=== PATIENT | female | born 1985 | race Caucasian/White ===

== ENCOUNTER → 2016-07-11 | Outpatient (CLI) | payer MEDICAID ==
[2016-07-11 14:56] LABS: ABSOLUTE BASOPHILS # (AUTO) 0.1 10^3/uL (0.0-0.2); ABSOLUTE EOSINOPHILS # (AUTO) 0.2 10^3/uL (0.0-0.6); ABSOLUTE LYMPHOCYTES (AUTO) 3.2 10^3/uL (0.5-4.7); ABSOLUTE MONOCYTES (AUTO) 0.7 10^3/uL (0.1-1.4); ABSOLUTE NEUT (AUTO) 5.7 10^3/uL (1.7-8.2); BASOPHILS % (AUTO) 1.2 % (0-2); EOSINOPHILS % (AUTO) 1.7 % (0-6); HEMOGLOBIN 13.6 g/dL (12.0-15.5); HGB HCT DIFFERENCE -0.2; LYMPHOCYTES % (AUTO) 32.2 % (13-45); MEAN CORPUSCULAR HEMOGLOBIN 27.3 pg (27.0-33.4); MEAN CORPUSCULAR HGB CONC 33.2 g/dL (32.0-36.0); MEAN CORPUSCULAR VOLUME 82 fl (80-97); MONOCYTES % (AUTO) 7.2 % (3-13); RED BLOOD COUNT 4.99 10^6/uL (3.72-5.28); RED CELL DISTRIBUTION WIDTH 13.1 % (11.5-14.0); SEGMENTED NEUTROPHILS % (AUTO) 57.7 % (42-78); WHITE BLOOD COUNT 9.9 10^3/uL (4.0-10.5)
[2016-07-11 15:19] LABS: ALANINE AMINOTRANSFERASE 29 U/L (9-52); ALBUMIN 4.4 g/dL (3.5-5.0); ALKALINE PHOSPHATASE 60 U/L (38-126); ANION GAP 15 (5-19); ASPARTATE AMINO TRANSFERASE 23 U/L (14-36); BILIRUBIN,DIRECT 0.3 mg/dL (0.0-0.4); BILIRUBIN,TOTAL 0.6 mg/dL (0.2-1.3); BLOOD UREA NITROGEN 16 mg/dL (7-20); CALCIUM 10.1 mg/dL (8.4-10.2); CARBON DIOXIDE 29 mmol/L (22-30); CHLORIDE 100 mmol/L (98-107); CHOLESTEROL 169.68 mg/dL (0-200); CREATININE RESULT 0.94 mg/dL (0.52-1.25); Direct HDL 66 mg/dL (>40); GLUCOSE 81 mg/dL (75-110); POTASSIUM 4.3 mmol/L (3.6-5.0); SODIUM 144.2 mmol/L (137-145); TOTAL PROTEIN 8.4 g/dL (6.3-8.2); TRIGLYCERIDES 85 mg/dL (<150)
[2016-07-11 15:30] LABS: DIRECT LDL 68 mg/dL (<100)
== END ==
LOC: OD 14:11
PROVIDERS: ATTEND Physician Assistant
DX: F31.31 Bipolar disorder, current episode depressed, mild (principal)
CPT/HCPCS: 36415; 80053; 80061; 83036; 85025

== ENCOUNTER 2016-12-31 15:51 | Emergency (ER) | payer MEDICAID ==
--- NOTE | 2016-12-31 16:29 | ER Document Report ---
ED Medical Screen (RME) - General Chief Complaint: Electrocution Stated Complaint: CHEST PAIN, LEFT ARM TINGLING Time Seen by Provider: 12/31/16 16:26 Notes: Patient states she was electrocuted when she picked up a wire that was sitting in a puddle of water. The other end of the wire was plugged into a household outlet. She states she immediately had chest pain and palpitations. She is also having some abnormal sensations going up the left hand and arm which is the extremity she used to hand picker the wire. TRAVEL OUTSIDE OF THE [place] IN LAST 30 DAYS: No - Related Data Allergies/Adverse Reactions: No Known Allergies Allergy (Verified 10/05/12 18:12) Past Medical History - Social History Frequency of alcohol use: Occasional Drug Abuse: None Neurological Medical History: Reports: Hx Migraine, Hx Seizures Renal/ Medical History: Reports: Hx Kidney Stones. Denies: Hx Peritoneal Dialysis Musculoskeltal Medical History: Reports Hx Arthritis Psychiatric Medical History: Reports: Hx Anxiety, Hx Bipolar Disorder, Hx Depression Past Surgical History: Reports: Hx Section - Immunizations Hx Diphtheria, Pertussis, Tetanus Vaccination: No - unknown Physical Exam - Vital signs Vitals: Temp Pulse Resp BP Pulse Ox 97.9 F 60 16 119/90 H 98 12/31/16 15:58 12/31/16 15:58 12/31/16 15:58 12/31/16 15:58 12/31/16 15:58 Course - Vital Signs Vital signs: Temp Pulse Resp BP Pulse Ox 97.9 F 60 16 119/90 H 98 12/31/16 15:58 12/31/16 15:58 12/31/16 15:58 12/31/16 15:58 12/31/16 15:58
[2016-12-31 17:02] LABS: ABSOLUTE BASOPHILS # (AUTO) 0.1 10^3/uL (0.0-0.2); ABSOLUTE EOSINOPHILS # (AUTO) 0.2 10^3/uL (0.0-0.6); ABSOLUTE LYMPHOCYTES (AUTO) 3.3 10^3/uL (0.5-4.7); ABSOLUTE MONOCYTES (AUTO) 0.7 10^3/uL (0.1-1.4); BASOPHILS % (AUTO) 0.9 % (0-2); EOSINOPHILS % (AUTO) 1.9 % (0-6); HEMATOCRIT 40.3 % (36.0-47.0); HEMOGLOBIN 13.6 g/dL (12.0-15.5); HGB HCT DIFFERENCE 0.5; LYMPHOCYTES % (AUTO) 35.6 % (13-45); MEAN CORPUSCULAR HEMOGLOBIN 27.3 pg (27.0-33.4); MEAN CORPUSCULAR HGB CONC 33.8 g/dL (32.0-36.0); MEAN CORPUSCULAR VOLUME 81 fl (80-97); MONOCYTES % (AUTO) 7.1 % (3-13); RED BLOOD COUNT 4.99 10^6/uL (3.72-5.28); SEGMENTED NEUTROPHILS % (AUTO) 54.5 % (42-78); WHITE BLOOD COUNT 9.2 10^3/uL (4.0-10.5)
--- NOTE | 2016-12-31 17:08 | ER Document Report ---
ED General - General Chief Complaint: Electrocution Stated Complaint: CHEST PAIN, LEFT ARM TINGLING Time Seen by Provider: 12/31/16 16:26 Mode of Arrival: Ambulatory Information source: Patient Notes: 31-year-old female presents after electrocuting herself by picking up a cord is connected to a regular house voltage L it. Patient medially dropped after being electrocuted noted that there was pain of her finger initially tingling up her arm and then began having intermittent chest pain every 5-10 minutes. Patient has a history of anxiety panic attacks which are similar to this chest pain TRAVEL OUTSIDE OF THE [place] IN LAST 30 DAYS: No - HPI Onset: Just prior to arrival Onset/Duration: Sudden Quality of pain: Sharp Severity: Mild Pain Level: 1 Associated symptoms: Chest pain Exacerbated by: Denies Relieved by: Denies Similar symptoms previously: No Recently seen / treated by doctor: No - Related Data Allergies/Adverse Reactions: No Known Allergies Allergy (Verified 10/05/12 18:12) Past Medical History - Social History Smoking Status: Current Some Day Smoker Cigarette use (# per day): No Chew tobacco use (# tins/day): No Smoking Education Provided: No Frequency of alcohol use: Occasional Drug Abuse: None Family History: Reviewed & Not Pertinent Neurological Medical History: Reports: Hx Migraine, Hx Seizures Renal/ Medical History: Reports: Hx Kidney Stones. Denies: Hx Peritoneal Dialysis Musculoskeltal Medical History: Reports Hx Arthritis Psychiatric Medical History: Reports: Hx Anxiety, Hx Bipolar Disorder, Hx Depression Past Surgical History: Reports: Hx Section - Immunizations Hx Diphtheria, Pertussis, Tetanus Vaccination: No - unknown Review of Systems - Review of Systems Notes: REVIEW OF SYSTEMS: CONSTITUTIONAL : Denies fever, chills, or sweats. Denies recent illness. EENT: Denies eye, ear, throat, or mouth pain or symptoms. Denies nasal or sinus congestion or discharge. Denies throat, tongue, or mouth swelling or difficulty swallowing. CARDIOVASCULAR: Admits to chest pain RESPIRATORY: Denies cough, cold, or chest congestion. Denies shortness of breath, difficulty breathing, or wheezing. GASTROINTESTINAL: Denies abdominal pain or distention. Denies nausea, vomiting , or diarrhea. Denies blood in vomitus, stools, or per rectum. Denies black, tarry stools. Denies constipation. GENITOURINARY: Denies difficulty urinating, painful urination, burning, frequency, blood in urine, or discharge. FEMALE GENITOURINARY: Denies vaginal bleeding, heavy or abnormal periods, irregular periods. Denies vaginal discharge or odor. MUSCULOSKELETAL: Denies back or neck pain or stiffness. Denies joint pain or swelling. SKIN: Denies rash, lesions or sores. HEMATOLOGIC : Denies easy bruising or bleeding. LYMPHATIC: Denies swollen, enlarged glands. NEUROLOGICAL: Denies confusion or altered mental status. Denies passing out or loss of consciousness. Denies dizziness or lightheadedness. Denies headache. Denies weakness or paralysis or loss of use of either side. Denies problems with gait or speech. Denies sensory loss, numbness, or tingling. Denies seizures. PSYCHIATRIC: Denies anxiety or stress. Denies depression, suicidal ideation, or homicidal ideation. ALL OTHER SYSTEMS REVIEWED AND NEGATIVE. PHYSICAL EXAMINATION: GENERAL: Well-appearing, well-nourished and in no acute distress. HEAD: Atraumatic, normocephalic. EYES: Pupils equal round and reactive to light, extraocular movements intact, conjunctiva are normal. ENT: Nares patent, oropharynx clear without exudates. Moist mucous membranes. NECK: Normal range of motion, supple without lymphadenopathy LUNGS: Breath sounds clear to auscultation bilaterally and equal. No wheezes rales or rhonchi. HEART: Regular rate and rhythm without murmurs ABDOMEN: Soft, nontender, nondistended abdomen. No guarding, no rebound. No masses appreciated. Female : deferred Musculoskeletal: Normal range of motion, no pitting or edema. No cyanosis. NEUROLOGICAL: Cranial nerves grossly intact. Normal speech, normal gait. Normal sensory, motor exams PSYCH: Normal mood, normal affect. SKIN: Mild erythema of the finger Dictation was performed using [employer] voice recognition software Physical Exam - Vital signs Vitals: Temp Pulse Resp BP Pulse Ox 97.9 F 60 16 119/90 H 98 12/31/16 15:58 12/31/16 15:58 12/31/16 15:58 12/31/16 15:58 12/31/16 15:58 Course - Re-evaluation Re-evalutation: 12/31/16 17:07 Very low suspicion for any life-threatening abnormalities post this Yosef electrocution. Patient otherwise looks well is in no distress lab work is pending 12/31/16 17:49 Lab work EKG noted no significant abnormality, patient is stable at this time had very minor electrocution After performing a Medical Screening Examination, I estimate there is LOW risk for RUPTURED ESOPHAGUS, PNEUMOTHORAX, PULMONARY EMBOLISM, ACUTE CORONARY SYNDROME, OR THORACIC AORTIC DISSECTION, thus I consider the discharge disposition reasonable. I have reevaluated this patient multiple times and no significant life threatening changes are noted. The patient and I have discussed the diagnosis and risks, and we agree with discharging home with close follow-up. We also discussed returning to the Emergency Department immediately if new or worsening symptoms occur. We have discussed the symptoms which are most concerning (e.g., bloody sputum, worsening pain or shortness of breath) that necessitate immediate return. - Vital Signs Vital signs: Temp Pulse Resp BP Pulse Ox 97.9 F 60 16 119/90 H 98 12/31/16 15:58 12/31/16 15:58 12/31/16 15:58 12/31/16 15:58 12/31/16 15:58 - Laboratory Result Diagrams: 12/31/16 16:45 12/31/16 16:45 Laboratory results interpreted by me: 12/31/16 16:45 Creatine Kinase 145 H - EKG Interpretation by [facility] EKG shows normal: Sinus rhythm, [place], Intervals, QRS Complexes Discharge - Discharge Clinical Impression: Electrocution Condition: Stable Disposition: HOME, SELF-CARE Instructions: Electrical Injury ([facility]) Additional Instructions: Follow up with your physician tomorrow for further care or return to the ED IMMEDIATELY if symptoms worsen or new concerns occur. If you cannot afford to follow up with your primary care physician a list of low cost clinics have been provided at the end of your discharge papers as well.
[2016-12-31 17:10] LABS: APPEARANCE,URINE SLIGHTLY-CLOUDY; BILIRUBIN,URINE NEGATIVE (NEGATIVE); GLUCOSE, URINE NEGATIVE (NEGATIVE); KETONES,URINE NEGATIVE (NEGATIVE); LEUKOCYTE ESTERASE,URINE NEGATIVE (NEGATIVE); NITRITE,URINE NEGATIVE (NEGATIVE); PROTEIN,URINE NEGATIVE (NEGATIVE); URINE SPECIFIC GRAVITY 1.023; UROBILINOGEN,URINE NEGATIVE mg/dL (<2.0)
[2016-12-31 17:18] LABS: ALANINE AMINOTRANSFERASE 31 U/L (9-52); ALBUMIN 4.2 g/dL (3.5-5.0); ALKALINE PHOSPHATASE 51 U/L (38-126); ANION GAP 12 (5-19); ASPARTATE AMINO TRANSFERASE 20 U/L (14-36); BILIRUBIN,DIRECT 0.2 mg/dL (0.0-0.4); BILIRUBIN,TOTAL 0.3 mg/dL (0.2-1.3); BLOOD UREA NITROGEN 14 mg/dL (7-20); CALCIUM 9.7 mg/dL (8.4-10.2); CARBON DIOXIDE 26 mmol/L (22-30); CHLORIDE 106 mmol/L (98-107); CREATINE KINASE 145 U/L (30-135); CREATININE RESULT 0.77 mg/dL (0.52-1.25); GLUCOSE 92 mg/dL (75-110); POTASSIUM 4.2 mmol/L (3.6-5.0); SODIUM 144.4 mmol/L (137-145); TOTAL PROTEIN 7.6 g/dL (6.3-8.2)
[2016-12-31 18:03] VITALS: BP 123/89
--- NOTE | 2017-01-01 00:01 | EKG REPORT ---
SEVERITY:- BORDERLINE ECG - SINUS RHYTHM INFERIOR Q WAVES, PROBABLY NORMAL VARIATION : Confirmed by: Tamy Dukes 01-Jan-2017 00:00:59
== END 2016-12-31 18:08 | disposition home or self-care (01) ==
LOC: ER 15:51
DX: W86.0XXA Exposure to domestic wiring and appliances, initial encounter (principal); Y93.H9 Activity, other involving exterior property and land maintenance, building and construction; Y92.009 Unspecified place in unspecified non-institutional (private) residence as the place of occurrence of the external cause; R07.9 Chest pain, unspecified; R20.2 Paresthesia of skin; F17.200 Nicotine dependence, unspecified, uncomplicated
CPT/HCPCS: 36415; 80053; 81001; 81025; 82550; 84484; 85025; 93005; 93010; 99283

== ENCOUNTER 2017-01-22 10:56 | Emergency (ER) | payer MEDICAID ==
--- NOTE | 2017-01-22 11:06 | ER Document Report ---
ED Medical Screen (RME) - General Chief Complaint: Flank Pain Stated Complaint: FLANK PAIN Time Seen by Provider: 01/22/17 11:05 Notes: Patient has left flank pain for 3 days. She states she is also had frequency. She has had nausea but no vomiting. She has had decreased appetite. No problems with stools. No previous abdominal surgeries. TRAVEL OUTSIDE OF THE [place] IN LAST 30 DAYS: No - Related Data Allergies/Adverse Reactions: No Known Allergies Allergy (Verified 01/22/17 10:58) Past Medical History Neurological Medical History: Reports: Hx Migraine, Hx Seizures Renal/ Medical History: Reports: Hx Kidney Stones. Denies: Hx Peritoneal Dialysis Musculoskeltal Medical History: Reports Hx Arthritis Psychiatric Medical History: Reports: Hx Anxiety, Hx Bipolar Disorder, Hx Depression Past Surgical History: Reports: Hx Section - Immunizations Hx Diphtheria, Pertussis, Tetanus Vaccination: No - unknown Physical Exam - Vital signs Vitals: Temp Pulse Resp BP Pulse Ox 97.9 F 67 16 123/85 98 01/22/17 10:58 01/22/17 10:58 01/22/17 10:58 01/22/17 10:58 01/22/17 10:58 Course - Vital Signs Vital signs: Temp Pulse Resp BP Pulse Ox 97.9 F 67 16 123/85 98 01/22/17 10:58 01/22/17 10:58 01/22/17 10:58 01/22/17 10:58 01/22/17 10:58
[2017-01-22 11:33] LABS: ABSOLUTE BASOPHILS # (AUTO) 0.1 10^3/uL (0.0-0.2); ABSOLUTE EOSINOPHILS # (AUTO) 0.2 10^3/uL (0.0-0.6); ABSOLUTE LYMPHOCYTES (AUTO) 2.8 10^3/uL (0.5-4.7); ABSOLUTE MONOCYTES (AUTO) 0.7 10^3/uL (0.1-1.4); ABSOLUTE NEUT (AUTO) 4.9 10^3/uL (1.7-8.2); BASOPHILS % (AUTO) 1.2 % (0-2); EOSINOPHILS % (AUTO) 1.9 % (0-6); HEMATOCRIT 41.4 % (36.0-47.0); HGB HCT DIFFERENCE 0.6; LYMPHOCYTES % (AUTO) 32.3 % (13-45); MEAN CORPUSCULAR HEMOGLOBIN 27.3 pg (27.0-33.4); MEAN CORPUSCULAR HGB CONC 33.9 g/dL (32.0-36.0); MEAN CORPUSCULAR VOLUME 81 fl (80-97); MONOCYTES % (AUTO) 7.9 % (3-13); RED BLOOD COUNT 5.14 10^6/uL (3.72-5.28); RED CELL DISTRIBUTION WIDTH 12.9 % (11.5-14.0); SEGMENTED NEUTROPHILS % (AUTO) 56.7 % (42-78); WHITE BLOOD COUNT 8.7 10^3/uL (4.0-10.5)
[2017-01-22 11:36] LABS: APPEARANCE,URINE SLIGHTLY-CLOUDY; BILIRUBIN,URINE NEGATIVE (NEGATIVE); GLUCOSE, URINE NEGATIVE (NEGATIVE); KETONES,URINE NEGATIVE (NEGATIVE); LEUKOCYTE ESTERASE,URINE NEGATIVE (NEGATIVE); NITRITE,URINE NEGATIVE (NEGATIVE); PROTEIN,URINE NEGATIVE (NEGATIVE); UROBILINOGEN,URINE NEGATIVE mg/dL (<2.0)
[2017-01-22 11:56] LABS: ALANINE AMINOTRANSFERASE 31 U/L (9-52); ALBUMIN 4.8 g/dL (3.5-5.0); ALKALINE PHOSPHATASE 60 U/L (38-126); ANION GAP 13 (5-19); ASPARTATE AMINO TRANSFERASE 23 U/L (14-36); BILIRUBIN,DIRECT 0.3 mg/dL (0.0-0.4); BILIRUBIN,TOTAL 0.6 mg/dL (0.2-1.3); BLOOD UREA NITROGEN 16 mg/dL (7-20); CARBON DIOXIDE 27 mmol/L (22-30); CHLORIDE 103 mmol/L (98-107); CREATININE RESULT 0.81 mg/dL (0.52-1.25); GLUCOSE 86 mg/dL (75-110); POTASSIUM 4.3 mmol/L (3.6-5.0); SODIUM 143.4 mmol/L (137-145); TOTAL PROTEIN 8.4 g/dL (6.3-8.2)
[2017-01-22] MEDS ORDERED: KETOROLAC TROMETHAMINE 60 MG/2 ML SDV IM ONE (12:18)
[2017-01-22] MEDS ORDERED: PHENAZOPYRIDINE HCL 200 MG TABLET PO ONE (12:20)
--- NOTE | 2017-01-22 13:47 | RADIOLOGY REPORT (SQ) ---
EXAM DESCRIPTION: CHEST PA/LAT COMPLETED DATE/TIME: 01/22/2017 1:36 pm REASON FOR STUDY: left lower CP, LUQ pain, cough COMPARISON: 11/29/2011 EXAM PARAMETERS: NUMBER OF VIEWS: two views TECHNIQUE: Digital Frontal and Lateral radiographic views of the chest acquired. RADIATION DOSE: NA LIMITATIONS: none FINDINGS: LUNGS AND PLEURA: No opacities, masses or pneumothorax. No pleural effusion. MEDIASTINUM AND HILAR STRUCTURES: No masses or contour abnormalities. HEART AND VASCULAR STRUCTURES: Heart normal size. No evidence for failure. BONES: No acute findings. HARDWARE: None in the chest. OTHER: No other significant finding. IMPRESSION: NO SIGNIFICANT RADIOGRAPHIC FINDING IN THE CHEST. TECHNICAL DOCUMENTATION: JOB ID: [id number] [employer]- All Rights Reserved
--- NOTE | 2017-01-22 14:31 | ER Document Report ---
ED GI/ <KACY DAVE - Last Filed: 01/22/17 14:42> - General Mode of Arrival: Ambulatory Information source: Patient TRAVEL OUTSIDE OF THE [place] IN LAST 30 DAYS: No - HPI Patient complains to provider of: Flank pain <BERENICE BOURGEOIS - Last Filed: 01/22/17 16:03> - General Chief Complaint: Flank Pain Stated Complaint: FLANK PAIN Time Seen by Provider: 01/22/17 11:05 Notes: Patient is a 31 year old female presenting to the emergency department complaining of left sided flank pain onset 2 days ago. Patient states that her flank pain is exacerbated with breathing and movement. Patient describes her pain as sharp. Patient has associated symptoms of chest pain, nausea, and cough. Patient denies any fever, vomiting, or diarrhea. (BERENICE BOURGEOIS) - Related Data Allergies/Adverse Reactions: No Known Allergies Allergy (Verified 01/22/17 10:58) Past Medical History - General Information source: Patient - Social History Smoking Status: Current Some Day Smoker Chew tobacco use (# tins/day): No Frequency of alcohol use: None Drug Abuse: None Family History: Reviewed & Not Pertinent Patient has suicidal ideation: No Patient has homicidal ideation: No Neurological Medical History: Reports: Hx Migraine, Hx Seizures Renal/ Medical History: Reports: Hx Kidney Stones Musculoskeltal Medical History: Reports Hx Arthritis Psychiatric Medical History: Reports: Hx Anxiety, Hx Bipolar Disorder, Hx Depression Past Surgical History: Reports: Hx Section - Immunizations Hx Diphtheria, Pertussis, Tetanus Vaccination: No - unknown <BERENICE BOURGEOIS - Last Filed: 01/22/17 16:03> Review of Systems - Review of Systems Constitutional: See HPI. denies: Fever EENT: No symptoms reported Cardiovascular: See HPI, Chest pain Respiratory: No symptoms reported Gastrointestinal: See HPI, Nausea. denies: Diarrhea, Vomiting Genitourinary: No symptoms reported, Flank pain Female Genitourinary: No symptoms reported Musculoskeletal: No symptoms reported Skin: No symptoms reported Hematologic/Lymphatic: No symptoms reported Neurological/Psychological: No symptoms reported -: Yes All other systems reviewed and negative <BERENICE BOURGEOIS - Last Filed: 01/22/17 16:03> Physical Exam <KACY DAVE - Last Filed: 01/22/17 14:42> <BERENICE BOURGEOIS - Last Filed: 01/22/17 16:03> - Vital signs Vitals: Temp Pulse Resp BP Pulse Ox 97.9 F 67 16 123/85 98 01/22/17 10:58 01/22/17 10:58 01/22/17 10:58 01/22/17 10:58 01/22/17 10:58 - Notes Notes: GENERAL: Alert, interacts well. No acute distress. HEAD: Normocephalic, atraumatic. EYES: Pupils equal, round, and reactive to light. Extraocular movements intact. ENT: Oral mucosa moist, tongue midline. Nares patent, no nasal septal hematoma, TM's intacts. Post nasal drip. NECK: Full range of motion. Supple. Trachea midline. LUNGS: Clear to auscultation bilaterally, no wheezes, rales, or rhonchi. No respiratory distress. HEART: Regular rate and rhythm. No murmurs, gallops, or rubs. ABDOMEN: LLQ tender to palpation. Non-distended. Bowel sounds present in all 4 quadrants. EXTREMITIES: Moves all 4 extremities spontaneously. No edema, radial and dorsalis pedis pulses 2/4 bilaterally. No cyanosis. NEUROLOGICAL: Alert and oriented x3. Normal speech. PSYCH: Normal affect, normal mood. SKIN: Warm, dry, normal turgor. No rashes or lesions noted. (BERENICE BOURGEOIS) Course - Laboratory Result Diagrams: 01/22/17 11:14 01/22/17 11:14 <KACY DAVE - Last Filed: 01/22/17 14:42> - Laboratory Result Diagrams: 01/22/17 11:14 01/22/17 11:14 <BERENICE BOURGEOIS - Last Filed: 01/22/17 16:03> - Re-evaluation Re-evalutation: 01/22/17 14:42 CVC unremarkable, chemistries unremarkable, lipase normal, urinalysis shows no signs of blood or infection. Chest x-ray does not give an explanation for the left upper flank or left lower chest pain. No suspicion for heart attack given the location of the pain that worsens with movement and the cough. Discussed with patient it could be shingles so watch for rash and that it could be one of the rare cases where a kidney stone presents without blood. (KACY DAVE) - Vital Signs Vital signs: Temp Pulse Resp BP Pulse Ox 97.8 F 71 18 121/88 H 99 01/22/17 14:51 01/22/17 14:51 01/22/17 14:51 01/22/17 14:51 01/22/17 14:51 - Laboratory Laboratory results interpreted by me: 01/22/17 11:14 Total Protein 8.4 H Discharge <KACY DAVE - Last Filed: 01/22/17 14:42> <BERENICE BOURGEOIS - Last Filed: 01/22/17 16:03> - Discharge Clinical Impression: Left upper quadrant abdominal pain of unknown etiology, Acute left flank pain Condition: Stable Disposition: HOME, SELF-CARE Additional Instructions: I am not certain what is causing your pain. Today we did not see any signs of urinary tract infection, kidney stone, Should you develop fevers, nausea, vomiting or worsening pain please return to the emergency department. The pain medication we gave you today is called Pyridium, if it helps your pain you may buy it [id number]. It is sold under the brand name Azo and you may take 200 mg. Forms: Return to Work Referrals: CATHY PERES MD [Primary Care Provider] - Follow up as needed [facility] [Provider Group] - Follow up as needed Scribe Documentation - Scribe Written by Jme:: Linden Watkins, 01/22/2017 16:03 acting as scribe for :: Mel <BERENICE BOURGEOIS - Last Filed: 01/22/17 16:03>
[2017-01-22 14:56] VITALS: BP 121/88
== END 2017-01-22 14:56 | disposition home or self-care (01) ==
LOC: ER 10:56
DX: R10.12 Left upper quadrant pain (principal); R07.9 Chest pain, unspecified; R11.0 Nausea; R05 Cough; F17.200 Nicotine dependence, unspecified, uncomplicated
CPT/HCPCS: 99284; 96372; 36415; 87086; 83690; 85025; 81025; 80053; 81001; 71020; J1885; J3490

== ENCOUNTER → 2017-05-15 | Outpatient (CLI) | payer MEDICAID ==
[2017-05-15 10:10] LABS: ABSOLUTE BASOPHILS # (AUTO) 0.1 10^3/uL (0.0-0.2); ABSOLUTE EOSINOPHILS # (AUTO) 0.2 10^3/uL (0.0-0.6); ABSOLUTE LYMPHOCYTES (AUTO) 2.9 10^3/uL (0.5-4.7); ABSOLUTE MONOCYTES (AUTO) 0.7 10^3/uL (0.1-1.4); ABSOLUTE NEUT (AUTO) 5.9 10^3/uL (1.7-8.2); EOSINOPHILS % (AUTO) 1.8 % (0-6); HEMATOCRIT 39.1 % (36.0-47.0); HEMOGLOBIN 13.2 g/dL (12.0-15.5); MEAN CORPUSCULAR HEMOGLOBIN 27.3 pg (27.0-33.4); MEAN CORPUSCULAR HGB CONC 33.7 g/dL (32.0-36.0); MEAN CORPUSCULAR VOLUME 81 fl (80-97); MONOCYTES % (AUTO) 6.8 % (3-13); PLATELET COUNT 275 10^3/uL (150-450); RED BLOOD COUNT 4.82 10^6/uL (3.72-5.28); RED CELL DISTRIBUTION WIDTH 12.7 % (11.5-14.0); SEGMENTED NEUTROPHILS % (AUTO) 60.4 % (42-78); TOTAL CELLS COUNTED % (AUTO) 100 %; WHITE BLOOD COUNT 9.7 10^3/uL (4.0-10.5)
[2017-05-15 10:32] LABS: ALANINE AMINOTRANSFERASE 31 U/L (9-52); ALBUMIN 4.2 g/dL (3.5-5.0); ALKALINE PHOSPHATASE 51 U/L (38-126); ANION GAP 11 (5-19); ASPARTATE AMINO TRANSFERASE 18 U/L (14-36); BILIRUBIN,DIRECT 0.4 mg/dL (0.0-0.4); BILIRUBIN,TOTAL 0.4 mg/dL (0.2-1.3); BLOOD UREA NITROGEN 14 mg/dL (7-20); CALCIUM 9.6 mg/dL (8.4-10.2); CARBON DIOXIDE 24 mmol/L (22-30); CHLORIDE 106 mmol/L (98-107); CHOLESTEROL 135.05 mg/dL (0-200); GLUCOSE 89 mg/dL (75-110); POTASSIUM 4.4 mmol/L (3.6-5.0); SODIUM 140.7 mmol/L (137-145); TOTAL PROTEIN 7.7 g/dL (6.3-8.2); TRIGLYCERIDES 67 mg/dL (<150)
[2017-05-15 10:43] LABS: DIRECT LDL 63 mg/dL (<100)
[2017-05-15 10:48] LABS: FREE T4 (FREE THYROXINE) 0.69 ng/dL (0.78-2.19)
[2017-05-15 11:02] LABS: THYROID STIMULATING HORMONE 4.7 uIU/mL (0.47-4.68)
== END ==
LOC: OD 08:51
PROVIDERS: ATTEND Physician Assistant
DX: F43.12 Post-traumatic stress disorder, chronic (principal)
CPT/HCPCS: 36415; 80053; 80061; 82652; 83036; 84439; 84443; 85025

== ENCOUNTER 2017-06-14 16:38 | Emergency (ER) | payer MEDICAID ==
[2017-06-14] MEDS ORDERED: MECLIZINE HCL 25 MG TABLET PO ONE (17:04)
[2017-06-14] MEDS ORDERED: DIAZEPAM 5 MG TABLET PO ONE (17:04)
--- NOTE | 2017-06-14 17:07 | ER Document Report ---
ED Medical Screen (RME) - General Chief Complaint: Dizziness Stated Complaint: DIZZY Time Seen by Provider: 06/14/17 17:01 Notes: RME DISCLOSURE I have seen this patient as part of a Rapid Medical Evaluation and, if applicable, placed any initially appropriate orders. The patient will be seen and fully evaluated, including a full history and physical exam, by a provider ( in Main ED or Fast Track) when a room becomes available. 32-year-old female chronic vertigo here with complaints of the same over the past few days. She has had lightheadedness and "room spinning" sensation progressively worsening and today fell 3 times due to the dizziness. States that she was hyacinth enough to fall onto the bed and therefore did not hurt herself. She also has a history of migraine headaches but does not currently have any headache. She gets these same symptoms 2-3 ("sometimes more") per week for the past 1-2 years. She has not tried taking anything for the symptoms at home. TRAVEL OUTSIDE OF THE [place] IN LAST 30 DAYS: No - Related Data Allergies/Adverse Reactions: No Known Allergies Allergy (Verified 06/14/17 16:40) Past Medical History Neurological Medical History: Reports: Hx Migraine, Hx Seizures Renal/ Medical History: Reports: Hx Kidney Stones. Denies: Hx Peritoneal Dialysis Musculoskeltal Medical History: Reports Hx Arthritis Psychiatric Medical History: Reports: Hx Anxiety, Hx Bipolar Disorder, Hx Depression Past Surgical History: Reports: Hx Section - Immunizations Hx Diphtheria, Pertussis, Tetanus Vaccination: No - unknown Physical Exam - Vital signs Vitals: Temp Pulse Resp BP Pulse Ox 98.1 F 79 16 128/82 H 97 06/14/17 16:44 06/14/17 16:44 06/14/17 16:44 06/14/17 16:44 06/14/17 16:44 Course - Vital Signs Vital signs: Temp Pulse Resp BP Pulse Ox 98.1 F 79 16 128/82 H 97 06/14/17 16:44 06/14/17 16:44 06/14/17 16:44 06/14/17 16:44 06/14/17 16:44
--- NOTE | 2017-06-14 17:53 | ER Document Report ---
ED Dizziness/Weakness - General Chief Complaint: Dizziness Stated Complaint: DIZZY Time Seen by Provider: 06/14/17 17:01 Notes: This is a 32-year-old female patient emergency department complaining of weakness and dizziness. States it has been happening for quite some time. Not sure if she is . Recently diagnosed with some thyroid problems as well. Just does not feel well. Lightheaded and dizzy TRAVEL OUTSIDE OF THE [place] IN LAST 30 DAYS: No - HPI Patient complains to provider of: Dizziness, Weakness - Related Data Allergies/Adverse Reactions: No Known Allergies Allergy (Verified 06/14/17 16:40) Past Medical History - General Information source: Patient - Social History Smoking Status: Current Every Day Smoker Chew tobacco use (# tins/day): No Frequency of alcohol use: Rare Drug Abuse: None Lives with: Family Family History: Reviewed & Not Pertinent Patient has suicidal ideation: No Patient has homicidal ideation: No Neurological Medical History: Reports: Hx Migraine, Hx Seizures Renal/ Medical History: Reports: Hx Kidney Stones. Denies: Hx Peritoneal Dialysis Musculoskeltal Medical History: Reports Hx Arthritis Psychiatric Medical History: Reports: Hx Anxiety, Hx Bipolar Disorder, Hx Depression Past Surgical History: Reports: Hx Section - Immunizations Hx Diphtheria, Pertussis, Tetanus Vaccination: No - unknown Review of Systems - Review of Systems Constitutional: Malaise, Weakness. denies: Fever EENT: No symptoms reported, Vertigo. denies: Blurred vision, Double vision, Ear pain, Difficulty swallowing Cardiovascular: No symptoms reported, Dizziness, Lightheaded Respiratory: No symptoms reported Gastrointestinal: No symptoms reported Genitourinary: No symptoms reported Female Genitourinary: No symptoms reported Musculoskeletal: No symptoms reported Skin: No symptoms reported Hematologic/Lymphatic: No symptoms reported Neurological/Psychological: No symptoms reported Physical Exam - Vital signs Vitals: Temp Pulse Resp BP Pulse Ox 98.1 F 79 16 128/82 H 97 06/14/17 16:44 06/14/17 16:44 06/14/17 16:44 06/14/17 16:44 06/14/17 16:44 Interpretation: Normal - General General appearance: Appears well, Alert - HEENT Head: Normocephalic, Atraumatic Eyes: Normal Pupils: PERRL - Respiratory Respiratory status: No respiratory distress Chest status: Nontender Breath sounds: Normal Chest palpation: Normal - Cardiovascular Rhythm: Regular Heart sounds: Normal auscultation Murmur: No - Abdominal Inspection: Normal Distension: No distension Bowel sounds: Normal Tenderness: Nontender Organomegaly: No organomegaly - Back Back: Normal, Nontender - Extremities General upper extremity: Normal inspection, Nontender, Normal color, Normal ROM , Normal temperature General lower extremity: Normal inspection, Nontender, Normal color, Normal ROM , Normal temperature, Normal weight bearing. No: Rachel's sign - Neurological Neuro grossly intact: Yes Cognition: Normal Orientation: AAOx4 [place] Coma Scale Eye Opening: Spontaneous [place] Coma Scale Verbal: Oriented [place] Coma Scale Motor: Obeys Commands [place] Coma Scale Total: 15 Speech: Normal Motor strength normal: LUE, RUE, LLE, RLE Sensory: Normal - Psychological Associated symptoms: Normal affect, Normal mood - Skin Skin Temperature: Warm Skin Moisture: Dry Skin Color: Normal Course - Re-evaluation Re-evalutation: 06/14/17 20:15 She is very well-appearing in no acute distress. Labs fairly unremarkable. At this time she feels much better. Would like to go home. Will DC at this time. Has appointment on Friday with her regular doctor for follow-up. - Vital Signs Vital signs: Temp Pulse Resp BP Pulse Ox 98.1 F 77 16 127/84 H 97 06/14/17 16:44 06/14/17 18:56 06/14/17 16:44 06/14/17 18:56 06/14/17 16:44 - Laboratory Result Diagrams: 06/14/17 18:08 06/14/17 18:08 Laboratory results interpreted by me: 06/14/17 18:08 WBC 11.6 H Discharge - Discharge Clinical Impression: Dizziness Condition: Good Disposition: HOME, SELF-CARE Instructions: Dizziness ([facility]) Additional Instructions: Please follow-up with your regular doctor on Friday as scheduled. Return for any worsening symptoms or concerns.
[2017-06-14 18:16] LABS: ABSOLUTE BASOPHILS # (AUTO) 0.1 10^3/uL (0.0-0.2); ABSOLUTE EOSINOPHILS # (AUTO) 0.3 10^3/uL (0.0-0.6); ABSOLUTE LYMPHOCYTES (AUTO) 3.3 10^3/uL (0.5-4.7); ABSOLUTE MONOCYTES (AUTO) 0.8 10^3/uL (0.1-1.4); ABSOLUTE NEUT (AUTO) 7.1 10^3/uL (1.7-8.2); BASOPHILS % (AUTO) 1.1 % (0-2); EOSINOPHILS % (AUTO) 2.2 % (0-6); HEMATOCRIT 38.8 % (36.0-47.0); LYMPHOCYTES % (AUTO) 28.8 % (13-45); MEAN CORPUSCULAR HGB CONC 33.4 g/dL (32.0-36.0); MEAN CORPUSCULAR VOLUME 81 fl (80-97); MONOCYTES % (AUTO) 6.7 % (3-13); PLATELET COUNT 292 10^3/uL (150-450); RED CELL DISTRIBUTION WIDTH 12.8 % (11.5-14.0); SEGMENTED NEUTROPHILS % (AUTO) 61.2 % (42-78); TOTAL CELLS COUNTED % (AUTO) 100 %; WHITE BLOOD COUNT 11.6 10^3/uL (4.0-10.5)
[2017-06-14 18:22] LABS: APPEARANCE,URINE SLIGHTLY-CLOUDY; BILIRUBIN,URINE NEGATIVE (NEGATIVE); COLOR,URINE YELLOW; GLUCOSE, URINE NEGATIVE (NEGATIVE); KETONES,URINE NEGATIVE (NEGATIVE); LEUKOCYTE ESTERASE,URINE NEGATIVE (NEGATIVE); NITRITE,URINE NEGATIVE (NEGATIVE); PROTEIN,URINE NEGATIVE (NEGATIVE); URINE SPECIFIC GRAVITY 1.019; UROBILINOGEN,URINE NEGATIVE mg/dL (<2.0)
[2017-06-14 18:37] LABS: ALANINE AMINOTRANSFERASE 28 U/L (9-52); ALBUMIN 4.3 g/dL (3.5-5.0); ALKALINE PHOSPHATASE 53 U/L (38-126); ANION GAP 9 (5-19); ASPARTATE AMINO TRANSFERASE 21 U/L (14-36); BILIRUBIN,DIRECT 0.1 mg/dL (0.0-0.4); BILIRUBIN,TOTAL 0.2 mg/dL (0.2-1.3); BLOOD UREA NITROGEN 14 mg/dL (7-20); CALCIUM 9.7 mg/dL (8.4-10.2); CARBON DIOXIDE 27 mmol/L (22-30); CHLORIDE 104 mmol/L (98-107); GLUCOSE 85 mg/dL (75-110); SODIUM 140.2 mmol/L (137-145); TOTAL PROTEIN 7.4 g/dL (6.3-8.2)
[2017-06-14 18:54] LABS: FREE T3 3.63 pg/mL (2.77-5.27); FREE T4 (FREE THYROXINE) 0.8 ng/dL (0.78-2.19)
--- NOTE | 2017-06-14 18:59 | EKG REPORT ---
SEVERITY:- NORMAL ECG - SINUS RHYTHM : Confirmed by: Tamy Dukes 14-Jun-2017 18:58:18
[2017-06-14 19:08] LABS: THYROID STIMULATING HORMONE 2.84 uIU/mL (0.47-4.68)
[2017-06-14] MEDS ORDERED: IBUPROFEN 600 MG TABLET PO ONE (20:20)
[2017-06-14 20:37] VITALS: BP 126/97
[2017-06-16 13:37] LABS: THYROID PEROXIDASE (TPO) AB 18 IU/mL (0-34)
[2017-06-16 14:18] LABS: THYROGLOBULIN AB <1.0 IU/mL (0.0-0.9)
== END 2017-06-14 20:27 | disposition home or self-care (01) ==
LOC: ER 16:38
DX: R42 Dizziness and giddiness (principal); R53.1 Weakness; R53.81 Other malaise; F17.200 Nicotine dependence, unspecified, uncomplicated
CPT/HCPCS: 93005; 99284; 36415; 84439; 84443; 85025; 81025; 80053; 81001; 86376; 84481; 93010; J3490 ×2

== ENCOUNTER 2017-09-03 11:36 | Emergency (ER) | payer MEDICAID ==
[2017-09-03 11:51] VITALS: BP 134/81
--- NOTE | 2017-09-03 13:52 | ER Document Report ---
ED Fall - General Chief Complaint: Fall Injury Stated Complaint: FALL INJURY ARM PAIN Time Seen by Provider: 09/03/17 13:03 Notes: Patient is a 32-year-old female complaining of pain to her head, left shoulder, left elbow, and entire back after a fall. Patient says she was walking her yard and slipped on some allergy on the sidewalk and fell. Patient did strike her head on the sidewalk but no loss of consciousness. Fell occurred approximately 0 930 this morning. TRAVEL OUTSIDE OF THE [place] IN LAST 30 DAYS: No - HPI Occurred: This morning Where: Home Context: Slipped Associated symptoms: None Location of injury/pain: Back, Elbow, Head, Shoulder Adult Front & Back: 1 - Abrasion 2 - Pain 3 - Pain, no hematoma 4 - Pain - Related data Allergies/Adverse Reactions: No Known Allergies Allergy (Verified 09/03/17 11:38) Past Medical History - General Information source: Patient - Social History Smoking Status: Current Every Day Smoker Chew tobacco use (# tins/day): No Frequency of alcohol use: Occasional Drug Abuse: None Lives with: Family Family History: Reviewed & Not Pertinent Patient has suicidal ideation: No Patient has homicidal ideation: No Neurological Medical History: Reports: Hx Migraine, Hx Seizures Renal/ Medical History: Reports: Hx Kidney Stones. Denies: Hx Peritoneal Dialysis Musculoskeltal Medical History: Reports Hx Arthritis Psychiatric Medical History: Reports: Hx Anxiety, Hx Bipolar Disorder, Hx Depression Past Surgical History: Reports: Hx Section - Immunizations Hx Diphtheria, Pertussis, Tetanus Vaccination: No - unknown Review of Systems - Review of Systems Constitutional: No symptoms reported EENT: No symptoms reported Cardiovascular: No symptoms reported Respiratory: No symptoms reported Gastrointestinal: No symptoms reported Genitourinary: No symptoms reported Female Genitourinary: No symptoms reported Musculoskeletal: No symptoms reported Skin: No symptoms reported Hematologic/Lymphatic: No symptoms reported Neurological/Psychological: No symptoms reported Physical Exam - Vital signs Vitals: Temp Pulse Resp BP Pulse Ox 98.0 F 66 16 134/81 H 97 09/03/17 11:49 09/03/17 11:49 09/03/17 11:49 09/03/17 11:49 09/03/17 11:49 Interpretation: Normal - General General appearance: Appears well, Alert In distress: None - HEENT Head: Normocephalic, Other - Posterior scalp tender to palpation, no hematoma Eyes: Normal Conjunctiva: Normal Extraocular movements intact: Yes Pupils: PERRL Tympanic membrane: Normal Pharynx: Normal Neck: Normal, Supple - No cervical tenderness - Respiratory Respiratory status: No respiratory distress Chest status: Nontender Breath sounds: Normal Chest palpation: Normal - Cardiovascular Rhythm: Regular Heart sounds: Normal auscultation Murmur: No - Abdominal Inspection: Normal Distension: No distension Bowel sounds: Normal Tenderness: Nontender Organomegaly: No organomegaly - Back Back: Normal, Nontender - Extremities General lower extremity: Normal inspection, Nontender, Normal color, Normal ROM , Normal temperature, Normal weight bearing. No: Rachel's sign Shoulder: Tender - Left anterior shoulder tenderness. Positive painful arc Elbow: Tender, Abrasion. No: Deformity, Joint effusion, Limited ROM - Full range of motion. Patient able to [place] flex and extend left elbow Forearm: Normal Wrist: Normal Hand: Normal - Neurological Neuro grossly intact: Yes Cognition: Normal Orientation: AAOx4 [place] Coma Scale Eye Opening: Spontaneous [place] Coma Scale Verbal: Oriented [place] Coma Scale Motor: Obeys Commands [place] Coma Scale Total: 15 Speech: Normal Motor strength normal: LUE, RUE, LLE, RLE Sensory: Normal - Psychological Associated symptoms: Normal affect, Normal mood - Skin Skin Temperature: Warm Skin Moisture: Dry Skin Color: Normal Course - Re-evaluation Re-evalutation: 09/03/17 13:50 Patient is neurologically intact. Discussed pros and cons of CT scan at this time I feel CT not indicated. discussed head injury precautions with pt and spouse. spouse is reliabel and agrees with observation 09/03/17 14:07 X-rays are negative. These results reviewed with the patient LOW risk for OPEN FRACTURE, COMPARTMENT SYNDROME, DEEP VENOUS THROMBOSIS, ACUTE TENDON RUPTURE, or NEUROVASCULAR INJURY thus I consider the discharge disposition reasonable. I have reevaluated this patient multiple times and no significant life threatening changes are noted. The patient and I have discussed the diagnosis and risks, and we agree with discharging home to closely follow-up with their primary doctor or the referral orthopedist with the understanding that symptoms and presentations can change. We also discussed returning to the Emergency Department immediately if new or worsening symptoms occur. We have discussed the symptoms which are most concerning (e.g., changing or worsening pain, numbness, weakness) that necessitate immediate return - Vital Signs Vital signs: Temp Pulse Resp BP Pulse Ox 98.0 F 66 16 134/81 H 97 09/03/17 11:49 09/03/17 11:49 09/03/17 11:49 09/03/17 11:49 09/03/17 11:49 Discharge - Discharge Clinical Impression: Abrasion Head injury Qualifiers: Encounter type: initial encounter Qualified Code(s): S09.90XA - Unspecified injury of head, initial encounter Left elbow contusion Qualifiers: Encounter type: initial encounter Qualified Code(s): S50.02XA - Contusion of left elbow, initial encounter Left shoulder strain Qualifiers: Encounter type: initial encounter Qualified Code(s): S46.912A - Strain of unspecified muscle, fascia and tendon at shoulder and upper arm level, left arm , initial encounter Low back strain Qualifiers: Encounter type: initial encounter Qualified Code(s): S39.012A - Strain of muscle, fascia and tendon of lower back, initial encounter Condition: Stable Disposition: HOME, SELF-CARE Instructions: Head Injury Precautions ([facility]), Contusion ([facility]), Abrasions ([facility]), Muscle Strain ([facility]), Ibuprofen (General) ([facility]), Oral Narcotic Medication ([facility]) Additional Instructions: keep abrasion clean wash with antibacterial soap and water, apply bacitracin after cleaning take meds as prescribed follow up with your primary care Prescriptions: Hydrocodone/Acetaminophen [[place] 5-325 Tablet] 1 each PO Q4H #15 tablet Ibuprofen [Motrin 800 Mg Tablet] 800 mg PO Q6H #20 tablet Methocarbamol [Robaxin 500 Mg Tablet] 1,000 mg PO Q6 #30 tablet Referrals: MARIA ELENA PIEDRA MD [Primary Care Provider] - Follow up as needed
--- NOTE | 2017-09-03 13:59 | RADIOLOGY REPORT (SQ) ---
EXAM DESCRIPTION: SHOULDER LEFT 2 OR MORE VIEWS COMPLETED DATE/TIME: 09/03/2017 1:34 pm REASON FOR STUDY: fall, pain COMPARISON: None. NUMBER OF VIEWS: Three views. TECHNIQUE: Internal rotation, external rotation, and Y view images acquired of the left shoulder. LIMITATIONS: None. FINDINGS: MINERALIZATION: Normal. BONES: No acute fracture or dislocation. No worrisome bone lesions. JOINTS: No glenohumeral joint malalignment. No widening at the acromioclavicular joint. VISUALIZED LUNGS AND RIBS: No pneumothorax. No rib fracture. SOFT TISSUES: No radiopaque foreign body. OTHER: No other significant finding. IMPRESSION: NEGATIVE STUDY OF THE LEFT SHOULDER. NO RADIOGRAPHIC EVIDENCE OF ACUTE INJURY. TECHNICAL DOCUMENTATION: JOB ID: [id number] [employer]- All Rights Reserved Reading location - IP/workstation name: [email or web address]
--- NOTE | 2017-09-03 14:03 | RADIOLOGY REPORT (SQ) ---
EXAM DESCRIPTION: ELBOW LEFT OVER 2 VIEWS COMPLETED DATE/TIME: 09/03/2017 1:44 pm REASON FOR STUDY: fall, pain COMPARISON: None. NUMBER OF VIEWS: Four views. TECHNIQUE: AP, lateral, and both oblique radiographic images acquired of the left elbow. LIMITATIONS: None. FINDINGS: MINERALIZATION: Normal. BONES: No acute fracture or dislocation. Benign supracondylar process along the distal left humerus diaphysis. JOINT: No effusion. SOFT TISSUES: No soft tissue swelling. No foreign body. OTHER: No other significant finding. IMPRESSION: NEGATIVE STUDY OF THE LEFT ELBOW. NO RADIOGRAPHIC EVIDENCE OF ACUTE INJURY. TECHNICAL DOCUMENTATION: JOB ID: [id number] [employer]- All Rights Reserved Reading location - IP/workstation name: [email or web address]
== END 2017-09-03 14:23 | disposition home or self-care (01) ==
LOC: ER 11:36
DX: S09.90XA Unspecified injury of head, initial encounter (principal); S50.02XA Contusion of left elbow, initial encounter; S46.912A Strain of unspecified muscle, fascia and tendon at shoulder and upper arm level, left arm, initial encounter; S39.012A Strain of muscle, fascia and tendon of lower back, initial encounter; S50.312A Abrasion of left elbow, initial encounter; R51 Headache; M25.512 Pain in left shoulder; M25.522 Pain in left elbow; M54.9 Dorsalgia, unspecified; W01.198A Fall on same level from slipping, tripping and stumbling with subsequent striking against other object, initial encounter; F17.200 Nicotine dependence, unspecified, uncomplicated
CPT/HCPCS: 99283

== ENCOUNTER 2017-11-12 19:27 | Emergency (ER) | payer MEDICAID ==
--- NOTE | 2017-11-12 20:12 | ER Document Report ---
ED Medical Screen (RME) - General Chief Complaint: Vaginal Bleeding Stated Complaint: VAGINAL BLEEDING TRAVEL OUTSIDE OF THE [place] IN LAST 30 DAYS: No - HPI Notes: 11/12/17 20:12 Unclear about status last menstrual cycle was in September now having heavy vaginal bleeding - Related Data Allergies/Adverse Reactions: No Known Allergies Allergy (Verified 11/12/17 19:28) Past Medical History - General Last Menstrual Period: september - Social History Chew tobacco use (# tins/day): No Frequency of alcohol use: Occasional Drug Abuse: None Neurological Medical History: Reports: Hx Migraine, Hx Seizures Renal/ Medical History: Reports: Hx Kidney Stones. Denies: Hx Peritoneal Dialysis Musculoskeltal Medical History: Reports Hx Arthritis Psychiatric Medical History: Reports: Hx Anxiety, Hx Bipolar Disorder, Hx Depression Past Surgical History: Reports: Hx Section - Immunizations Hx Diphtheria, Pertussis, Tetanus Vaccination: No - unknown Review of Systems - Review of Systems Female Genitourinary: Vaginal bleeding Physical Exam - Vital signs Vitals: Temp Pulse Resp BP Pulse Ox 97.4 F 73 18 130/61 H 100 11/12/17 19:37 11/12/17 19:37 11/12/17 19:37 11/12/17 19:37 11/12/17 19:37 - Respiratory Respiratory status: No respiratory distress Chest status: Nontender Breath sounds: Normal Chest palpation: Normal - Cardiovascular Rhythm: Regular Heart sounds: Normal auscultation Course - Vital Signs Vital signs: Temp Pulse Resp BP Pulse Ox 97.4 F 73 18 130/61 H 100 11/12/17 19:37 11/12/17 19:37 11/12/17 19:37 11/12/17 19:37 11/12/17 19:37 Doctor's Discharge - Discharge Referrals: MARIA ELENA PIEDRA MD [Primary Care Provider] - Follow up as needed
[2017-11-12 20:32] LABS: ABSOLUTE BASOPHILS # (AUTO) 0.1 10^3/uL (0.0-0.2); ABSOLUTE EOSINOPHILS # (AUTO) 0.2 10^3/uL (0.0-0.6); ABSOLUTE MONOCYTES (AUTO) 0.7 10^3/uL (0.1-1.4); ABSOLUTE NEUT (AUTO) 6.1 10^3/uL (1.7-8.2); BASOPHILS % (AUTO) 0.7 % (0-2); EOSINOPHILS % (AUTO) 1.8 % (0-6); HEMATOCRIT 38.9 % (36.0-47.0); HEMOGLOBIN 13.3 g/dL (12.0-15.5); LYMPHOCYTES % (AUTO) 36.1 % (13-45); MEAN CORPUSCULAR HEMOGLOBIN 27.2 pg (27.0-33.4); MEAN CORPUSCULAR HGB CONC 34.1 g/dL (32.0-36.0); MEAN CORPUSCULAR VOLUME 80 fl (80-97); MONOCYTES % (AUTO) 6.1 % (3-13); PLATELET COUNT 303 10^3/uL (150-450); RED BLOOD COUNT 4.88 10^6/uL (3.72-5.28); RED CELL DISTRIBUTION WIDTH 13.1 % (11.5-14.0); SEGMENTED NEUTROPHILS % (AUTO) 55.3 % (42-78); TOTAL CELLS COUNTED % (AUTO) 100 %; WHITE BLOOD COUNT 11.1 10^3/uL (4.0-10.5)
[2017-11-12 20:55] LABS: ANION GAP 11 (5-19); BLOOD UREA NITROGEN 15 mg/dL (7-20); CALCIUM 9.8 mg/dL (8.4-10.2); CARBON DIOXIDE 27 mmol/L (22-30); CHLORIDE 103 mmol/L (98-107); GLUCOSE 88 mg/dL (75-110); SODIUM 141.3 mmol/L (137-145)
[2017-11-12 20:59] LABS: INTERNATIONAL RATION (INR) 0.89; PROTHROMBIN TIME 12.5 SEC (11.4-15.4)
[2017-11-12] MEDS ORDERED: HYDROCODONE/ACETAMINOPHEN 5-325 MG TABLET PO ONE (22:27)
--- NOTE | 2017-11-12 23:07 | ER Document Report ---
ED General - General Chief Complaint: Vaginal Bleeding Stated Complaint: VAGINAL BLEEDING Time Seen by Provider: 11/12/17 20:13 Mode of Arrival: Ambulatory Information source: Patient TRAVEL OUTSIDE OF THE [place] IN LAST 30 DAYS: No - HPI Patient complains to provider of: Uterine bleeding Onset: Other - Patient had a positive test 1 week ago with a very faint line, also had a negative test during that time, today began to have some cramping in the pelvis and then passed some blood clots. She denies any recent trauma to the abdomen, denies any bleeding problems in the past, she has had multiple pregnancies in the past. - Related Data Allergies/Adverse Reactions: No Known Allergies Allergy (Verified 11/12/17 19:28) Past Medical History - General Information source: Patient Last Menstrual Period: september - Social History Smoking Status: Current Some Day Smoker Chew tobacco use (# tins/day): No Frequency of alcohol use: Occasional Drug Abuse: None Family History: Reviewed & Not Pertinent Patient has suicidal ideation: No Patient has homicidal ideation: No Neurological Medical History: Reports: Hx Migraine, Hx Seizures Renal/ Medical History: Reports: Hx Kidney Stones. Denies: Hx Peritoneal Dialysis Musculoskeletal Medical History: Reports Hx Arthritis Psychiatric Medical History: Reports: Hx Anxiety, Hx Bipolar Disorder, Hx Depression Past Surgical History: Reports: Hx Section - Immunizations Hx Diphtheria, Pertussis, Tetanus Vaccination: No - unknown Review of Systems - Review of Systems -: Yes All other systems reviewed and negative Physical Exam - Vital signs Vitals: Temp Pulse Resp BP Pulse Ox 97.4 F 73 18 130/61 H 100 11/12/17 19:37 11/12/17 19:37 11/12/17 19:37 11/12/17 19:37 11/12/17 19:37 - General General appearance: Appears well In distress: None - HEENT Head: Normocephalic Eyes: Normal Conjunctiva: Normal Cornea: Normal Extraocular movements intact: Yes Eyelashes: Normal Pupils: PERRL - Respiratory Respiratory status: No respiratory distress Chest status: Nontender Breath sounds: Normal Chest palpation: Normal - Cardiovascular Rhythm: Regular Heart sounds: Normal auscultation Murmur: No - Abdominal Inspection: Normal Distension: No distension Tenderness: Nontender - Genitourinary External exam: Normal Speculum exam: Cervix closed Vaginal bleeding: Mild - Back Back: Normal - Extremities General upper extremity: Normal inspection, Nontender, Normal strength General lower extremity: Normal inspection, Nontender, Normal ROM, Normal strength - Neurological Neuro grossly intact: Yes Cognition: Normal Orientation: AAOx4 Olinda Coma Scale Eye Opening: Spontaneous [place]inda Coma Scale Verbal: Oriented [place] Coma Scale Motor: Obeys Commands [place] Coma Scale Total: 15 Speech: Normal Cranial nerves: Normal Motor strength normal: LUE, RUE, LLE, RLE - Psychological Associated symptoms: Normal affect Course - Re-evaluation Re-evalutation: 11/12/17 23:45 32-year-old female presents for evaluation of vaginal bleeding in the setting of a previous positive test. Examination the patient's abdominal examination is benign, she is well- appearing hemodynamically stable. She had labs drawn through triage which demonstrate a relatively normal H&H, her hCG is negative. She is not at this time, will perform pelvic examination and reassess. On reassessment patient pelvic examination demonstrates a closed cervical loss with some dark blood. Patient did not take any medication prior to arrival were encouraged her to utilize NSAIDs to slow her bleeding. Encouraged her to follow-up with an cotton gin yard supervisor in the coming week for reassessment of her vaginal bleeding. She is hemodynamically stable at this time, otherwise well-appearing. Given that she is currently hemodynamically stable with a reassuring H&H reassuring pelvic examination will plan for discharge, if persistently bleeding in 3 days gave a dose of medroxyprogesterone to initiate, she will follow-up with her primary physician. - Vital Signs Vital signs: Temp Pulse Resp BP Pulse Ox 97.6 F 74 12 115/74 96 11/12/17 23:38 11/12/17 23:38 11/12/17 23:38 11/12/17 23:38 11/12/17 23:38 - Laboratory Result Diagrams: 11/12/17 20:20 11/12/17 20:20 Laboratory results interpreted by me: 11/12/17 11/12/17 20:20 20:20 WBC 11.1 H APTT 42.0 H Discharge - Discharge Clinical Impression: Vaginal bleeding Condition: Good Disposition: HOME, SELF-CARE Instructions: Dysfunctional Uterine Bleeding ([facility]) Additional Instructions: You were seen today for your uterine bleeding. You had exam including a physical examination and blood work, you are not today that we can measure in your blood work or urine test. It looks like your bleeding is controlled at this time, you are not anemic. Use the ibuprofen as directed for the next 3 days if your bleeding does not stop during that time call your hand stitcher or family medicine doctor for an appointment. Use the Progesterone if your bleeding does not stop for the next three days, again schedule an appointment with your hand stitcher. Return for worsening bleeding, lightheadedness dizziness or other symptoms. Prescriptions: Hydrocodone/Acetaminophen [[place] 5-325 mg Tablet] 1 tab PO Q12H PRN #4 tablet PRN Reason: Abdominal Cramping Ibuprofen 400 mg PO Q6H #30 tablet Medroxyprogesterone Acet [Provera 10 mg Tablet] 10 mg PO DAILY #10 tablet Referrals: MARIA ELENA PIEDRA MD [Primary Care Provider] - Follow up as needed
[2017-11-12 23:39] VITALS: BP 115/74
== END 2017-11-12 23:39 | disposition home or self-care (01) ==
LOC: ER 19:27
DX: N93.9 Abnormal uterine and vaginal bleeding, unspecified (principal); F17.200 Nicotine dependence, unspecified, uncomplicated; R10.2 Pelvic and perineal pain; Z87.442 Personal history of urinary calculi; Z32.02 Encounter for pregnancy test, result negative
CPT/HCPCS: 36415; 80048; 84702; 85025; 85610; 85730; 86900; 86901; 99284

== ENCOUNTER → 2017-12-04 | Outpatient (CLI) | payer MEDICAID ==
--- NOTE | 2017-12-04 10:08 | RADIOLOGY REPORT (SQ) ---
EXAM DESCRIPTION: U/S NON OB PEL TV W/DOPPLER COMPLETED DATE/TIME: 12/04/2017 9:51 am REASON FOR STUDY: EXCESSIVE AND FREQUENT MENSTRUATION W/IRREGULAR CYCLE (N92.1) N92.1 EXCESSIVE AND FREQUENT MENSTRUATION WITH IRREGULAR CYC COMPARISON: None. TECHNIQUE: Dynamic and static grayscale images acquired of the pelvis via transvaginal approach and recorded on PACS. Additional selected color Doppler and spectral images recorded. LIMITATIONS: None. FINDINGS: UTERUS: Contour normal. No mass. The patient has a history of spontaneous on 11/12/2017. ENDOMETRIAL STRIPE: Small amount of fluid in the endometrial cavity. No focal or generalized thicke bartolo. No masses. CERVIX: The cervix measures 2.5 cm and is closed. No nabothian cysts. RIGHT OVARY AND DOPPLER: Normal size. No worrisome masses. Normal arterial vascular flow without evid ence for torsion. LEFT OVARY AND DOPPLER: Not visualized. FREE FLUID: None noted. OTHER: No other significant finding. MEASUREMENTS: UTERUS: 9.2 x 4.1 x 3.5 cm ENDOMETRIAL STRIPE: 5.6 mm in RIGHT OVARY: 3.5 x 2.5 x 2.5 cm LEFT OVARY: Not visualized. IMPRESSION: 1. Small amount of fluid in the endometrial cavity. No masses. 2. The left ovary is not visualized sonographically. TECHNICAL DOCUMENTATION: JOB ID: [id number] [employer]- All Rights Reserved Rev-07/25 Reading location - IP/workstation name: [email or web address]
== END ==
LOC: RAD 08:27
PROVIDERS: ATTEND Family Medicine
DX: N92.1 Excessive and frequent menstruation with irregular cycle (principal)
CPT/HCPCS: 76830; 93976

== ENCOUNTER 2017-12-10 18:54 | Emergency (ER) | payer MEDICAID ==
[2017-12-10 19:02] VITALS: BP 138/95
[2017-12-10] MEDS ORDERED: NORMAL SALINE 1000 ML 1,000 ML IV ONE (19:32)
[2017-12-10] MEDS ORDERED: KETOROLAC TROMETHAMINE INJ/PF 30 MG/1 ML SDV IV ONE (19:32)
[2017-12-10] MEDS ORDERED: ONDANSETRON HCL INJ/PF 4 MG/2 ML SDV IV ONE (19:32)
--- NOTE | 2017-12-10 19:34 | ER Document Report ---
ED Medical Screen (RME) - General Chief Complaint: Abdominal Pain Stated Complaint: ABDOMINAL PAIN Time Seen by Provider: 12/10/17 19:31 Notes: 32 years old female with a history of left ovarian cyst presents today with left lower quadrant abdominal pain. She was treated with oxycodone and Robaxin on in the past. Says has not taken any pain medications over 2 weeks. On examination seems to be in pain and has left lower quadrant abdominal tenderness. TRAVEL OUTSIDE OF THE [place] IN LAST 30 DAYS: No - Related Data Allergies/Adverse Reactions: No Known Allergies Allergy (Verified 12/10/17 19:20) Past Medical History - Social History Frequency of alcohol use: Occasional Drug Abuse: None Neurological Medical History: Reports: Hx Migraine, Hx Seizures Renal/ Medical History: Reports: Hx Kidney Stones. Denies: Hx Peritoneal Dialysis Musculoskeltal Medical History: Reports Hx Arthritis Psychiatric Medical History: Reports: Hx Anxiety, Hx Bipolar Disorder, Hx Depression Past Surgical History: Reports: Hx Section - Immunizations Hx Diphtheria, Pertussis, Tetanus Vaccination: No - unknown Physical Exam - Vital signs Vitals: Temp Pulse Resp BP Pulse Ox 99.0 F 74 18 138/95 H 96 12/10/17 19:01 12/10/17 19:01 12/10/17 19:01 12/10/17 19:01 12/10/17 19:01 Course - Vital Signs Vital signs: Temp Pulse Resp BP Pulse Ox 99.0 F 74 18 138/95 H 96 12/10/17 19:01 12/10/17 19:01 12/10/17 19:01 12/10/17 19:01 12/10/17 19:01 Doctor's Discharge - Discharge Referrals: MARIA ELENA PIEDRA MD [Primary Care Provider] - Follow up as needed
[2017-12-10 20:21] LABS: APPEARANCE,URINE SLIGHTLY-CLOUDY; BILIRUBIN,URINE NEGATIVE (NEGATIVE); COLOR,URINE YELLOW; GLUCOSE, URINE NEGATIVE (NEGATIVE); KETONES,URINE NEGATIVE (NEGATIVE); LEUKOCYTE ESTERASE,URINE NEGATIVE (NEGATIVE); NITRITE,URINE NEGATIVE (NEGATIVE); PROTEIN,URINE NEGATIVE (NEGATIVE); UROBILINOGEN,URINE NEGATIVE mg/dL (<2.0)
[2017-12-10 20:43] LABS: ABSOLUTE BASOPHILS # (AUTO) 0.1 10^3/uL (0.0-0.2); ABSOLUTE EOSINOPHILS # (AUTO) 0.2 10^3/uL (0.0-0.6); ABSOLUTE LYMPHOCYTES (AUTO) 4.1 10^3/uL (0.5-4.7); ABSOLUTE MONOCYTES (AUTO) 0.8 10^3/uL (0.1-1.4); BASOPHILS % (AUTO) 0.9 % (0-2); EOSINOPHILS % (AUTO) 1.2 % (0-6); HEMATOCRIT 37.6 % (36.0-47.0); HEMOGLOBIN 12.7 g/dL (12.0-15.5); LYMPHOCYTES % (AUTO) 31.1 % (13-45); MEAN CORPUSCULAR HGB CONC 33.9 g/dL (32.0-36.0); MEAN CORPUSCULAR VOLUME 80 fl (80-97); PLATELET COUNT 283 10^3/uL (150-450); RED BLOOD COUNT 4.71 10^6/uL (3.72-5.28); RED CELL DISTRIBUTION WIDTH 13.4 % (11.5-14.0); SEGMENTED NEUTROPHILS % (AUTO) 60.8 % (42-78); TOTAL CELLS COUNTED % (AUTO) 100 %; WHITE BLOOD COUNT 13.1 10^3/uL (4.0-10.5)
[2017-12-10] MEDS ORDERED: MORPHINE SULFATE 10 MG/ML INJ IV ONE (20:44)
--- NOTE | 2017-12-10 20:58 | ER Document Report ---
ED General - General Chief Complaint: Abdominal Pain Stated Complaint: ABDOMINAL PAIN Time Seen by Provider: 12/10/17 19:31 Notes: Patient is a 32-year-old female that presents to the emergency department for chief complaint of left pelvic pain. Patient states that she started having worsened left pelvic pain today, particularly after she was sleeping on her stomach, when she woke up the pain was worse, she currently rates it as a 6 out of 10, constant ache, with occasionally sharp sensation, without radiation of pain. She states that she had a failed on 12 November of this year, and is not sure if she passed all the products of conception, and was concerned about this, as a possible cause of her . She has had ovarian cyst in the past on the left that it caused her pain as well. She denies noting any fevers, chills, night sweats, does admit to having nausea with one episode of vomiting. Denies having any diarrhea, dysuria or hematuria. She also denies any vaginal bleeding or discharge. Past Medical History: Bipolar disorder Past Surgical History: Social History: Denies tobacco, alcohol or drug use. Family History: Reviewed and noncontributory for presenting illness Allergies: Reviewed, see documented allergy list. REVIEW OF SYSTEMS: Unless otherwise stated in this report the patient's positive and negative responses for review of systems for constitutional, eyes, ENT, cardiovascular, respiratory, gastrointestinal, neurological, genitourinary, musculoskeletal, and integumentary systems and related systems to the presenting problem are either as stated in the HPI or were not pertinent or were negative for the symptoms and/or complaints related to the presenting medical problem. PHYSICAL EXAMINATION: Vital signs reviewed, nursing noted reviewed. GENERAL: Well-appearing, well-nourished and in no acute distress. HEAD: Atraumatic, normocephalic. EYES: Eyes appear normal, extraocular movements intact, sclera anicteric, conjunctiva are normal. ENT: nares patent, oropharynx clear without exudates. Moist mucous membranes. NECK: Normal range of motion, supple without lymphadenopathy LUNGS: Breath sounds clear to auscultation bilaterally and equal. No wheezes rales or rhonchi. HEART: Regular rate and rhythm without murmurs ABDOMEN: Soft, tenderness to palpation in the left lower quadrant of the abdomen , normoactive bowel sounds. No rebound, guarding, or rigidity. No masses appreciated. No flank tenderness EXTREMITIES: Nontender, good range of motion, no pitting or edema. NEUROLOGICAL: No focal neurological deficits. Moves all extremities spontaneously Motor and sensory grossly intact on exam. PSYCH: Normal mood, normal affect. SKIN: Warm, Dry, normal turgor, no rashes or lesions noted on exposed skin TRAVEL OUTSIDE OF THE [place] IN LAST 30 DAYS: No - Related Data Allergies/Adverse Reactions: No Known Allergies Allergy (Verified 12/10/17 19:20) Past Medical History - Social History Smoking Status: Current Some Day Smoker Frequency of alcohol use: Occasional Drug Abuse: None Family History: Reviewed & Not Pertinent Patient has suicidal ideation: No Patient has homicidal ideation: No Neurological Medical History: Reports: Hx Migraine, Hx Seizures Renal/ Medical History: Reports: Hx Kidney Stones. Denies: Hx Peritoneal Dialysis Musculoskeletal Medical History: Reports Hx Arthritis Psychiatric Medical History: Reports: Hx Anxiety, Hx Bipolar Disorder, Hx Depression Past Surgical History: Reports: Hx Section - Immunizations Hx Diphtheria, Pertussis, Tetanus Vaccination: No - unknown Physical Exam - Vital signs Vitals: Temp Pulse Resp BP Pulse Ox 99.0 F 74 18 138/95 H 96 12/10/17 19:01 12/10/17 19:01 12/10/17 19:01 12/10/17 19:01 12/10/17 19:01 Course - Re-evaluation Re-evalutation: Patient seen and examined vital signs reviewed. Laboratory data and imaging were ordered as appropriate for the patient's presenting symptoms and complaint, with consideration of any critical or life threatening conditions that may be associated with their obtained history and exam as noted above. Patient was treated with IV fluids, Zofran and Toradol Results were reviewed when available and demonstrated mild leukocytosis, UA demonstrated bacteria, however the patient was not having any urinary symptoms, we will not start antibiotics at this time, she did have an ultrasound, that demonstrated some fluid in the uterus, patient states she is should be starting her menstrual cycle shortly, her hCG was negative, the left ovary was not visualized, however if this is the case, ovarian torsion is very unlikely, given that the ovary would enlarge significantly in the setting of ovarian torsion. The patient was re-evaluated and was still having some pain, she was medicated with morphine, reevaluation after that, the patient was feeling much better. Pain is most likely either menstrual cramping, or recent ruptured ovarian cyst, as the patient did have a small amount of free pelvic fluid, she is given referral to [facility] for follow-up. Evaluation was most consistent with left pelvic pain Results were discussed with the patient at this point, after careful consideration I feel that that patient can be discharged from the emergency department, the patient was educated treatments and reasons to return to the emergency department based on their presumed diagnosis as noted above, they were advised to followup with a primary care physician in 2-3 days. Patient was agreeable to plan of care. *Note is created using voice recognition software and may contain spelling, syntax or grammatical errors. Laboratory 12/10/17 12/10/17 12/10/17 19:31 20:31 20:31 WBC 13.1 H RBC 4.71 Hgb 12.7 Hct 37.6 MCV 80 MCH 27.0 MCHC 33.9 RDW 13.4 Plt Count 283 Seg Neutrophils % 60.8 Lymphocytes % 31.1 Monocytes % 6.0 Eosinophils % 1.2 Basophils % 0.9 Absolute Neutrophils 8.0 Absolute Lymphocytes 4.1 Absolute Monocytes 0.8 Absolute Eosinophils 0.2 Absolute Basophils 0.1 Sodium 137.8 Potassium 3.7 Chloride 104 Carbon Dioxide 25 Anion Gap 9 BUN 9 Creatinine 0.70 Est GFR ( Amer) > 60 Est GFR (Non-Af Amer) > 60 Glucose 92 Calcium 9.7 Total Bilirubin 0.4 Direct Bilirubin 0.3 Neonat Total Bilirubin Not Reportable Neonat Direct Bilirubin Not Reportable Neonat Indirect Bili Not Reportable AST 17 ALT 27 Alkaline Phosphatase 58 Total Protein 7.9 Albumin 4.1 Urine Color YELLOW Urine Appearance SLIGHTLY-CLOUDY Urine pH 5.0 Ur Specific [place] 1.020 Urine Protein NEGATIVE Urine Glucose (UA) NEGATIVE Urine Ketones NEGATIVE Urine Blood NEGATIVE Urine Nitrite NEGATIVE Urine Bilirubin NEGATIVE Urine Urobilinogen NEGATIVE Ur Leukocyte Esterase NEGATIVE Urine WBC (Auto) 2 Urine RBC (Auto) 1 U Hyaline Cast (Auto) 1 Urine Bacteria (Auto) 1+ Squamous Epi Cells Auto 8 Urine Mucus (Auto) MOD Urine Ascorbic Acid NEGATIVE Urine HCG, Qual NEGATIVE Transvaginal US 12/10/17 20:44 IMPRESSION: 1. Nonspecific fluid present within the central endometrial canal. 2. Small volume of free pelvic fluid may be physiologic. 2010 [employer]- All Rights Reserved - Vital Signs Vital signs: Temp Pulse Resp BP Pulse Ox 99.0 F 74 18 138/95 H 96 12/10/17 19:01 12/10/17 19:01 12/10/17 19:01 12/10/17 19:01 12/10/17 19:01 - Laboratory Result Diagrams: 12/10/17 20:31 12/10/17 20:31 Laboratory results interpreted by me: 12/10/17 20:31 WBC 13.1 H Discharge - Discharge Clinical Impression: Pelvic pain Condition: Stable Disposition: HOME, SELF-CARE Instructions: Pelvic Pain ([facility]) Additional Instructions: Please return to the emergency department if you have any worsening, or concern of your symptoms. Please return to the emergency department if you develop chest pain, difficulty breathing, severe abdominal pain, or ongoing vomiting. Please follow-up with your primary care physician in 2-3 days and any other recommended physicians. If prescribed, take all medications as directed. If you have any questions or concerns do not hesitate to return the emergency department for evaluation. Prescriptions: Naproxen 500 mg PO Q12H #30 tablet Referrals: MARIA ELENA PIEDRA MD [Primary Care Provider] - Follow up in 3-5 days [facility] [Provider Group] - Follow up tomorrow (call for appointment. )
[2017-12-10 21:01] LABS: ALANINE AMINOTRANSFERASE 27 U/L (9-52); ALBUMIN 4.1 g/dL (3.5-5.0); ALKALINE PHOSPHATASE 58 U/L (38-126); ANION GAP 9 (5-19); ASPARTATE AMINO TRANSFERASE 17 U/L (14-36); BILIRUBIN,DIRECT 0.3 mg/dL (0.0-0.4); BILIRUBIN,TOTAL 0.4 mg/dL (0.2-1.3); BLOOD UREA NITROGEN 9 mg/dL (7-20); CALCIUM 9.7 mg/dL (8.4-10.2); CARBON DIOXIDE 25 mmol/L (22-30); CHLORIDE 104 mmol/L (98-107); GLUCOSE 92 mg/dL (75-110); POTASSIUM 3.7 mmol/L (3.6-5.0); SODIUM 137.8 mmol/L (137-145); TOTAL PROTEIN 7.9 g/dL (6.3-8.2)
--- NOTE | 2017-12-10 22:33 | RADIOLOGY REPORT (SQ) ---
EXAM DESCRIPTION: US TRANSVAGINAL COMPLETED DATE/TME: 12/10/2017 20:44 2113 hours 12/10/2017. CLINICAL HISTORY: 32 years, Female, left pelvic pain COMPARISON: None. TECHNIQUE: Limited transvaginal grayscale and color Doppler sonographic imaging was performed per service request. Transabdominal imaging was not performed. LIMITATIONS: None. FINDINGS: The uterus measures 11.0 x 4.3 x 5.1 cm. Endometrial thickness measures 7 mm. Fluid present within the central endometrial canal. The RIGHT ovary has a normal sonographic appearance. The right ovary measures 36 x 31 x 23 mm. Positive Doppler flow. The left ovary was not visualized. No adnexal masses are identified. Small volume free pelvic fluid is seen. IMPRESSION: 1. Nonspecific fluid present within the central endometrial canal. 2. Small volume of free pelvic fluid may be physiologic. 2011 [employer]- All Rights Reserved
== END 2017-12-10 23:08 | disposition home or self-care (01) ==
LOC: ER 18:54
DX: R10.2 Pelvic and perineal pain (principal); R11.2 Nausea with vomiting, unspecified; D72.829 Elevated white blood cell count, unspecified; R82.71 Bacteriuria; F17.200 Nicotine dependence, unspecified, uncomplicated; Z87.42 Personal history of other diseases of the female genital tract; Z87.59 Personal history of other complications of pregnancy, childbirth and the puerperium; Z87.442 Personal history of urinary calculi
CPT/HCPCS: 99284; 96361; 96374; 96375; 36415; 85025; 81025; 80053; 81001; 76830; 93976; J1885; J2270; J2405

== ENCOUNTER → 2018-01-07 | Outpatient (CLI) | payer MEDICAID ==
[2018-01-07 12:52] LABS: A TYPE INFLUENZA AG NEGATIVE (NEGATIVE); B INFLUENZA AG NEGATIVE (NEGATIVE)
== END ==
LOC: OD 12:05
PROVIDERS: ATTEND Nurse Practitioner Family
DX: J06.9 Acute upper respiratory infection, unspecified (principal)
CPT/HCPCS: 87804

== ENCOUNTER 2018-01-28 11:43 | Emergency (ER) | payer MEDICAID ==
[2018-01-28 11:49] VITALS: BP 124/83
--- NOTE | 2018-01-28 12:02 | ER Document Report ---
ED Medical Screen (RME) - General Chief Complaint: Lower Abdominal Pain Stated Complaint: STOMACH PAIN Time Seen by Provider: 01/28/18 11:56 TRAVEL OUTSIDE OF THE [place] IN LAST 30 DAYS: No - HPI Notes: 01/28/18 12:01 Patient is a 32-year-old female G 10 P1 that presents to the emergency department for chief complaint of lower abdominal pain. 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 Her most recent one was in November. She states she had a normal period in December but is a few days late on her menstrual cycle this month. She did take a home test which was inconclusive. She is trying to get currently. She reports nausea with no vomiting. Her pain is sharp and bilateral but slightly more severe on the left. She denies any vaginal discharge or bleeding. ROS: GENERAL: Denies fever of chills CV: Denies chest pain PHYSICAL EXAMINATION: GENERAL: Well-appearing, well-nourished and in no acute distress. HEAD: Atraumatic, normocephalic. EYES: Pupils equal round extraocular movements intact, conjunctiva are normal. ENT: Nares patent NECK: Normal range of motion LUNGS: No respiratory distress Musculoskeletal: Normal range of motion NEUROLOGICAL: Normal speech, normal gait. PSYCH: Normal mood, normal affect. MDM: Patient seen and examined for rapid initial assessment. Vital signs reviewed. A comprehensive ED assessment and evaluation of the patient, analysis of test results and completion of the medical decision making process will be conducted by additional ED providers. - Related Data Allergies/Adverse Reactions: No Known Allergies Allergy (Verified 01/28/18 11:45) Past Medical History Neurological Medical History: Reports: Hx Migraine, Hx Seizures Renal/ Medical History: Reports: Hx Kidney Stones. Denies: Hx Peritoneal Dialysis Musculoskeltal Medical History: Reports Hx Arthritis Psychiatric Medical History: Reports: Hx Anxiety, Hx Bipolar Disorder, Hx Depression Past Surgical History: Reports: Hx Section - Immunizations Hx Diphtheria, Pertussis, Tetanus Vaccination: No - unknown Physical Exam - Vital signs Vitals: Temp Pulse Resp BP Pulse Ox 98.4 F 81 16 124/83 96 01/28/18 11:48 01/28/18 11:48 01/28/18 11:48 01/28/18 11:48 01/28/18 11:48 Course - Vital Signs Vital signs: Temp Pulse Resp BP Pulse Ox 98.4 F 81 16 124/83 96 01/28/18 11:48 01/28/18 11:48 01/28/18 11:48 01/28/18 11:48 01/28/18 11:48 Doctor's Discharge - Discharge Referrals: BOLIVAR JOHNSON, TAILERCPA-C [Primary Care Provider] - Follow up as needed
[2018-01-28 13:14] LABS: APPEARANCE,URINE SLIGHTLY-CLOUDY; BILIRUBIN,URINE NEGATIVE (NEGATIVE); COLOR,URINE YELLOW; GLUCOSE, URINE NEGATIVE (NEGATIVE); KETONES,URINE NEGATIVE (NEGATIVE); LEUKOCYTE ESTERASE,URINE NEGATIVE (NEGATIVE); NITRITE,URINE NEGATIVE (NEGATIVE); PROTEIN,URINE NEGATIVE (NEGATIVE); URINE SPECIFIC GRAVITY 1.025; UROBILINOGEN,URINE NEGATIVE mg/dL (<2.0)
[2018-01-28] MEDS ORDERED: KETOROLAC TROMETHAMINE 60 MG/2 ML SDV IM ONE (14:13)
--- NOTE | 2018-01-28 14:13 | ER Document Report ---
ED General - General Chief Complaint: Lower Abdominal Pain Stated Complaint: STOMACH PAIN Time Seen by Provider: 01/28/18 11:56 Mode of Arrival: Ambulatory Information source: Patient, [facility] Records Notes: Patient is a 32-year-old female with epilepsy, recurrent miscarriages presents to the emergency department for chief complaint of lower abdominal pain. Patient states that she awoke this morning with acute onset of lower abdominal pain left greater than right. She does report that she had a recent miscarriage in November 2017. She was seen for similar symptoms of pelvic pain and found to have free fluid in the abdomen. She denies any fever, chills , nausea, vomiting. Her last bowel movement was this morning. Her surgical history includes a . TRAVEL OUTSIDE OF THE [place] IN LAST 30 DAYS: No - HPI Onset: This morning Onset/Duration: Sudden Quality of pain: Sharp Severity: Moderate Associated symptoms: denies: Fever, Nausea, Vomiting Exacerbated by: Denies Relieved by: Denies Similar symptoms previously: Yes Recently seen / treated by doctor: Yes - Related Data Allergies/Adverse Reactions: No Known Allergies Allergy (Verified 01/28/18 11:45) Past Medical History - General Information source: Patient, [facility] Records - Social History Smoking Status: Current Some Day Smoker Frequency of alcohol use: Occasional Drug Abuse: None Lives with: Spouse/Significant other Family History: Reviewed & Not Pertinent Patient has suicidal ideation: No Patient has homicidal ideation: No Neurological Medical History: Reports: Hx Migraine, Hx Seizures Renal/ Medical History: Reports: Hx Kidney Stones. Denies: Hx Peritoneal Dialysis Musculoskeletal Medical History: Reports Hx Arthritis Psychiatric Medical History: Reports: Hx Anxiety, Hx Bipolar Disorder, Hx Depression Past Surgical History: Reports: Hx Section - Immunizations Hx Diphtheria, Pertussis, Tetanus Vaccination: No - unknown Review of Systems - Review of Systems Notes: REVIEW OF SYSTEMS: CONSTITUTIONAL : Denies fever, chills, or sweats. Denies recent illness. Denies weight loss, recent hospitalizations. EENT: Denies visual changes, eye pain. Denies sore throat, oral lesions, difficulty swallowing. CARDIOVASCULAR: Denies chest pain. Denies palpitations. Denies lower extremity edema. RESPIRATORY: Denies cough. Denies shortness of breath, wheezing. GASTROINTESTINAL: Denies abdominal distention. Denies nausea, vomiting, or diarrhea. Denies blood in vomitus, stools, or per rectum. Denies black, tarry stools. Denies constipation. GENITOURINARY: Denies difficulty urinating, painful urination, frequency, blood in urine, or vaginal discharge. MUSCULOSKELETAL: Denies back or neck pain or stiffness. Denies joint pain or swelling. SKIN: Denies rash, lesions or sores. HEMATOLOGIC : Denies easy bruising or bleeding. LYMPHATIC: Denies swollen glands. NEUROLOGICAL: Denies confusion or altered mental status. Denies loss of consciousness. Denies dizziness or lightheadedness. Denies headache. Denies weakness or paralysis. Denies problems difficulty with ambulation, slurred speech. Denies sensory loss, numbness, or tingling. Denies seizures. PSYCHIATRIC: Denies anxiety or stress. Denies depression, suicidal ideation, or homicidal ideation. Denies visual or auditory hallucinations. Physical Exam - Vital signs Vitals: Temp Pulse Resp BP Pulse Ox 98.4 F 81 16 124/83 96 01/28/18 11:48 01/28/18 11:48 01/28/18 11:48 01/28/18 11:48 01/28/18 11:48 Interpretation: Normal - Notes Notes: PHYSICAL EXAMINATION: GENERAL: Well-appearing, well-nourished and in no acute distress. HEAD: Atraumatic, normocephalic. EYES: Pupils equal round and reactive to light, extraocular movements intact, conjunctiva are normal. ENT: Nares patent, oropharynx clear without exudates. Moist mucous membranes. NECK: Normal range of motion, supple without lymphadenopathy LUNGS: Breath sounds clear to auscultation bilaterally and equal. No wheezes rales or rhonchi. HEART: Regular rate and rhythm without murmurs ABDOMEN: Left lower quadrant abdominal pain with palpation. No guarding, no rebound. No masses appreciated. Female : deferred Musculoskeletal: Normal range of motion, no pitting or edema. No cyanosis. NEUROLOGICAL: Cranial nerves grossly intact. Normal speech, normal gait. Normal sensory, motor exams PSYCH: Normal mood, normal affect. SKIN: Warm, Dry, normal turgor, no rashes or lesions noted. Course - Re-evaluation Re-evalutation: Laboratory 01/28/18 12:06 Urine Color YELLOW Urine Appearance SLIGHTLY-CLOUDY Urine pH 6.0 Ur Specific [place] 1.025 Urine Protein NEGATIVE Urine Glucose (UA) NEGATIVE Urine Ketones NEGATIVE Urine Blood NEGATIVE Urine Nitrite NEGATIVE Urine Bilirubin NEGATIVE Urine Urobilinogen NEGATIVE Ur Leukocyte Esterase NEGATIVE Urine WBC (Auto) 0 Urine RBC (Auto) 1 Squamous Epi Cells Auto 1 Urine Mucus (Auto) RARE Urine Ascorbic Acid NEGATIVE Urine HCG, Qual NEGATIVE Transvaginal US 01/28/18 14:54 IMPRESSION: Essentially normal study. There is a small cystic area in the endometrium. Negative HCG. Follow-up as clinically indicated. 01/28/18 14:59 Was made aware that the patient is requesting to leave AGAINST MEDICAL ADVICE. I went in to the room and asked the patient what was wrong and she stated that she needed to get her son from her mother's house because her mother is ill. She states that if the ultrasound is done within the next couple of minutes she can stay otherwise she has to leave. Ultrasound was called and patient was taken immediately over. Patient left prior to receiving ultrasound results but I did tell her that if there was anything concerning. Ultrasound was essentially normal except for a small cystic area in the endometrium. Patient is not and urinalysis is not consistent with infection. She was made aware these findings prior to premature discharge. 01/28/18 21:26 - Vital Signs Vital signs: Temp Pulse Resp BP Pulse Ox 98.4 F 81 16 124/83 96 01/28/18 11:48 01/28/18 11:48 01/28/18 11:48 01/28/18 11:48 01/28/18 11:48 - Diagnostic Test Radiology reviewed: Image reviewed, Reports reviewed Discharge - Discharge Clinical Impression: Pelvic pain Condition: Good Disposition: HOME, SELF-CARE Instructions: Pelvic Pain ([facility]) Additional Instructions: All of your results are not complete but I understand that you need to pickle maker your son. I will call you if anything is abnormal. Follow up with your [id number] hours for further care or return to the ED IMMEDIATELY if symptoms worsen or you have any concerns. If you cannot afford to follow up with your primary care physician a list of low cost clinics have been provided at the end of your discharge papers as well. Most prescribed medications have multiple side effects. The safest thing to do is when filling your prescription speak to your pharmacist regarding possible interactions with your normal home medications and over the counter medications such as Ibuprofen, Tylenol, Benadryl. If you experience any symptoms that cause you discomfort or concern you should discontinue the medication immediately and return to the emergency room or call your primary care physician. Referrals: BOLIVAR JOHNSON, WILIAM-C [NURSE PRACTITIONER] - Follow up as needed
--- NOTE | 2018-01-28 15:25 | RADIOLOGY REPORT (SQ) ---
EXAM DESCRIPTION: U/S NON OB PEL TV W/DOPPLER COMPLETED DATE/TIME: 01/28/2018 3:16 pm REASON FOR STUDY: llq pain COMPARISON: 12/10/2017 TECHNIQUE: Dynamic and static grayscale images acquired of the pelvis via transvaginal approach and recorded on PACS. Additional selected color Doppler and spectral images recorded. LIMITATIONS: None. FINDINGS: UTERUS: Contour normal. No mass. ENDOMETRIAL STRIPE: There is a very small cystic area in the endometrium that is subcentimeter in siz e. CERVIX: 4.2 cm. RIGHT OVARY AND DOPPLER: Normal size. No worrisome masses. Normal arterial vascular flow without evid ence for torsion. LEFT OVARY AND DOPPLER: Ovary not seen. FREE FLUID: Small amount of free fluid in posterior cul-de-sac. OTHER: No other significant finding. MEASUREMENTS: UTERUS: 8 x 4.6 x 5.1 cm. ENDOMETRIAL STRIPE: 1.4 cm. RIGHT OVARY: 4.5 x 3.1 x 3.6 cm. LEFT OVARY: Ovary not seen. IMPRESSION: Essentially normal study. There is a small cystic area in the endometrium. Negative HC G. Follow-up as clinically indicated. TECHNICAL DOCUMENTATION: JOB ID: [id number] [employer]- All Rights Reserved Rev Reading location - IP/workstation name: [email or web address]
== END 2018-01-28 15:12 | disposition home or self-care (01) ==
LOC: ER 11:43
DX: R10.2 Pelvic and perineal pain (principal); R10.32 Left lower quadrant pain; F17.200 Nicotine dependence, unspecified, uncomplicated; Z87.59 Personal history of other complications of pregnancy, childbirth and the puerperium; Z87.442 Personal history of urinary calculi
CPT/HCPCS: 76830; 81001; 81025; 93976; 99284

== ENCOUNTER 2018-04-02 09:43 | Emergency (ER) | payer MEDICAID ==
--- NOTE | 2018-04-02 11:36 | RADIOLOGY REPORT (SQ) ---
EXAM DESCRIPTION: CT HEAD WITHOUT COMPLETED DATE/TIME: 04/02/2018 11:25 am REASON FOR STUDY: Lightheaded and nearly passing out. Headache COMPARISON: None. TECHNIQUE: Axial images acquired through the brain without intravenous contrast. Images reviewed wi th bone, brain and subdural windows. Additional sagittal and coronal reconstructions were generated. Images stored on PACS. All CT scanners at this facility use dose modulation, iterative reconstruction, and/or weight based d osing when appropriate to reduce radiation dose to as low as reasonably achievable (ALARA). [facility]: Dose Right [facility]: CareDose [facility]: Dose Right [facility]: Teradose 4D [facility]: [employer] RADIATION DOSE: CT Rad equipment meets quality standard of care and radiation dose reduction techniq ues were employed. CTDIvol: 53.2 mGy. DLP: 1070 mGy-cm. mGy. LIMITATIONS: None. FINDINGS: VENTRICLES: Normal size and contour. CEREBRUM: No masses. No hemorrhage. No midline shift. No evidence for acute infarction. Normal gra y/white matter differentiation. No areas of low density in the white matter. CEREBELLUM: No masses. No hemorrhage. No alteration of density. No evidence for acute infarction. EXTRAAXIAL SPACES: No fluid collections. No masses. ORBITS AND GLOBE: No intra- or extraconal masses. Normal contour of globe without masses. CALVARIUM: No fracture. PARANASAL SINUSES: No fluid or mucosal thickening. SOFT TISSUES: No mass or hematoma. OTHER: No other significant finding. IMPRESSION: No acute intracranial pathology. No noncontrast CT findings explain headache. EVIDENCE OF ACUTE STROKE: NO. COMMENT: Quality ID # [id number]: Final reports with documentation of one or more dose reduction techniques (e.g., Automated exposure control, adjustment of the mA and/or kV according to patient size, use of iterative reconstruction technique) TECHNICAL DOCUMENTATION: JOB ID: [id number] [employer] All Rights Reserved Reading location - IP/workstation name: [email or web address]
[2018-04-02 11:43] LABS: APPEARANCE,URINE SLIGHTLY-CLOUDY; BILIRUBIN,URINE NEGATIVE (NEGATIVE); COLOR,URINE YELLOW; GLUCOSE, URINE NEGATIVE (NEGATIVE); KETONES,URINE NEGATIVE (NEGATIVE); LEUKOCYTE ESTERASE,URINE NEGATIVE (NEGATIVE); NITRITE,URINE NEGATIVE (NEGATIVE); PROTEIN,URINE NEGATIVE (NEGATIVE); URINE SPECIFIC GRAVITY 1.021; UROBILINOGEN,URINE NEGATIVE mg/dL (<2.0)
[2018-04-02 12:01] LABS: ABSOLUTE BASOPHILS # (AUTO) 0.1 10^3/uL (0.0-0.2); ABSOLUTE EOSINOPHILS # (AUTO) 0.1 10^3/uL (0.0-0.6); ABSOLUTE LYMPHOCYTES (AUTO) 3.1 10^3/uL (0.5-4.7); ABSOLUTE MONOCYTES (AUTO) 0.7 10^3/uL (0.1-1.4); ABSOLUTE NEUT (AUTO) 6.5 10^3/uL (1.7-8.2); EOSINOPHILS % (AUTO) 1.2 % (0-6); HEMATOCRIT 40.3 % (36.0-47.0); HEMOGLOBIN 13.5 g/dL (12.0-15.5); LYMPHOCYTES % (AUTO) 29.6 % (13-45); MEAN CORPUSCULAR HEMOGLOBIN 26.9 pg (27.0-33.4); MEAN CORPUSCULAR HGB CONC 33.5 g/dL (32.0-36.0); MEAN CORPUSCULAR VOLUME 80 fl (80-97); MONOCYTES % (AUTO) 6.3 % (3-13); PLATELET COUNT 279 10^3/uL (150-450); RED BLOOD COUNT 5.04 10^6/uL (3.72-5.28); RED CELL DISTRIBUTION WIDTH 13.1 % (11.5-14.0); SEGMENTED NEUTROPHILS % (AUTO) 61.9 % (42-78); TOTAL CELLS COUNTED % (AUTO) 100 %; WHITE BLOOD COUNT 10.5 10^3/uL (4.0-10.5)
[2018-04-02 12:18] LABS: ALANINE AMINOTRANSFERASE 17 U/L (9-52); ALBUMIN 4.6 g/dL (3.5-5.0); ALKALINE PHOSPHATASE 52 U/L (38-126); ANION GAP 10 (5-19); ASPARTATE AMINO TRANSFERASE 17 U/L (14-36); BILIRUBIN,DIRECT 0.2 mg/dL (0.0-0.4); BILIRUBIN,TOTAL 0.2 mg/dL (0.2-1.3); BLOOD UREA NITROGEN 14 mg/dL (7-20); CALCIUM 9.9 mg/dL (8.4-10.2); CARBON DIOXIDE 26 mmol/L (22-30); CHLORIDE 106 mmol/L (98-107); GLUCOSE 98 mg/dL (75-110); POTASSIUM 4.3 mmol/L (3.6-5.0); SODIUM 141.5 mmol/L (137-145); TOTAL PROTEIN 8.1 g/dL (6.3-8.2)
--- NOTE | 2018-04-02 12:33 | ER Document Report ---
ED General - General Chief Complaint: Dizziness Stated Complaint: DIZZY Time Seen by Provider: 04/02/18 10:03 Primary Care Provider: MARIA ELENA PIEDRA MD [Primary Care Provider] - Follow up as needed Notes: Patient says that she has been feeling dizzy for the past 2 days. Feels like she is going to fall and actually did so as she was walking her 9-year-old out of the house this morning. Her knees just buckled and she went to the ground. She did not have any neurologic deficits. Did not feel her heart beating fast or irregular or any such symptoms. Denies headache. Denies chest pain. Has felt nauseated but not vomiting. No diarrhea. Not running any fever. Has felt hot and cold. Patient says she has been having intermittent nosebleeds over the past 4 months. Also says she has had a headache for the past 3 weeks which comes and goes. Patient has depression and anxiety. Has a history of a seizure disorder for which she is not on any current medications. She was diagnosed with a head injury causing her to have seizures in the year 2001. TRAVEL OUTSIDE OF THE [place] IN LAST 30 DAYS: No - Related Data Allergies/Adverse Reactions: No Known Allergies Allergy (Verified 01/28/18 11:45) Past Medical History - Social History Smoking Status: Current Some Day Smoker Frequency of alcohol use: None Drug Abuse: None Family History: Reviewed & Not Pertinent Patient has suicidal ideation: No Patient has homicidal ideation: No Neurological Medical History: Reports: Hx Migraine, Hx Seizures Renal/ Medical History: Reports: Hx Kidney Stones. Denies: Hx Peritoneal Dialysis Musculoskeletal Medical History: Reports Hx Arthritis Psychiatric Medical History: Reports: Hx Anxiety, Hx Bipolar Disorder, Hx Depression Past Surgical History: Reports: Hx Section - Immunizations Hx Diphtheria, Pertussis, Tetanus Vaccination: No - unknown Review of Systems - Review of Systems Notes: REVIEW OF SYSTEMS: CONSTITUTIONAL : Denies fever. EENT: Denies eye, ear, nose or mouth or throat pain or other symptoms. CARDIOVASCULAR: Denies chest pain. RESPIRATORY: Denies cough, chest congestion, or shortness of breath. GASTROINTESTINAL: Nauseated but denies abdominal pain or vomiting, or diarrhea. GENITOURINARY: Denies difficulty or painful urinating, urinary frequency, blood in urine. MUSCULOSKELETAL: Denies back or neck pain. Denies joint pain or swelling. SKIN: Denies rash or skin lesions. NEUROLOGICAL: See HPI. Has had headache. Denies sensory loss or motor deficits. ALL OTHER SYSTEMS REVIEWED AND NEGATIVE. Physical Exam - Vital signs Vitals: Temp Pulse Resp BP Pulse Ox 98.2 F 78 14 127/80 H 97 04/02/18 10:00 04/02/18 10:00 04/02/18 10:00 04/02/18 10:00 04/02/18 10:00 Interpretation: Normal Notes: PHYSICAL EXAMINATION: GENERAL: Well-appearing, in no acute distress. HEAD: Atraumatic, normocephalic. EYES: Pupils equal round and reactive to light, extraocular movements intact. ENT: oropharynx clear without exudates. Moist mucous membranes. NECK: Normal range of motion, supple. LUNGS: Breath sounds clear and equal bilaterally. HEART: Regular rate and rhythm without murmurs. ABDOMEN: Soft, nontender. No guarding or rebound. No masses. BACK: No tenderness throughout entire back. EXTREMITIES: Normal range of motion without pain. NEUROLOGICAL: Normal speech, normal gait. Normal sensory, motor, and reflex e xams. Awake, alert, and oriented x3. Cranial nerves normal. PSYCH: Normal mood, normal affect. SKIN: Warm, dry, no rashes. Course - Re-evaluation Re-evalutation: 04/02/18 20:15 Patient's entire workup was normal. All the lab studies were normal. CT scan of her head was negative. EKG normal. - Vital Signs Vital signs: Temp Pulse Resp BP Pulse Ox 99.3 F 80 16 134/82 H 97 04/02/18 12:33 04/02/18 12:33 04/02/18 12:33 04/02/18 12:33 04/02/18 12:33 - Laboratory Result Diagrams: 04/02/18 11:45 04/02/18 11:45 Laboratory results interpreted by me: 04/02/18 11:45 MCH 26.9 L - Diagnostic Test Radiology reviewed: Image reviewed, Reports reviewed - CT scan of the brain is normal. - EKG Interpretation by Dc EKG shows normal: Sinus rhythm Rate: Normal Rhythm: NSR Discharge - Discharge Clinical Impression: Dizziness, Viral illness Condition: Stable Disposition: HOME, SELF-CARE Additional Instructions: NEAR SYNCOPAL EPISODE: Syncope or near syncope (fainting or near-fainting) can occur from many di fferent health problems. Or it can be a simple fainting spell requiring no treatment. It is safe for you to go home, but further evaluation will likely be necessary. Your work-up may include tests for internal bleeding, heart disease, medication problems, or near-strokes. Tests are not always required, however, depending on the nature of your problem. The warning signs of an impending faint include: dizziness, lightheadedness, nausea, hot flashes, tingling, and weakness. If this happens, lay down and put your feet up, then wait until all of these symptoms have passed before standing up again. If these episodes become recurrent, or if you develop chest pain, heart palpitations, mental confusion, blurred vision, or headache, then you should call the physician, or go to the emergency room. ALTERED MENTAL STATUS: An altered mental status is a change in the normal functioning of the brain. This alteration of function can range from minor decreased brain function with some forgetfulness and confusion to complete loss of consciousness and coma. There are many possible causes of an altered mental status and include brain injuries such as trauma or strokes, problems with oxygen supply to the brain, fever and infections of the brain and/or elsewhere in the body, metabolic abnormalities such as low or high blood sugar, overdoses or excessive medication ingestion, and mental and psychiatric illnesses. Sometimes the altered mental status resolves and a definite cause is not determined. If a cause for your altered mental status was found, it has likely been cor rected. Your evaluation has not shown any condition that requires that you be admitted to the hospital. It is believed that you are safe to lelave and return to your home. If you have a return of your symptoms, you should return for re- evaluation. NORMAL EXAM AND WORKUP: At this time, your examination and workup show no significant abnormality. No significant abnormal physical findings were noted. All laboratory, EKG, and imaging (x-ray, CT scans, ultrasound) studies that were ordered show no significant abnormality. Although your examination and all studies that were ordered showed no significant abnormal finding, there are no examinations and no studies that are 100% accurate. There is always the possibility that some abnormality could exist and not be detected with physical examination or within the limits and capabilities of laboratory and other studies. You should return or follow up as you were instructed on your visit today for further evaluation if your symptoms do not resolve. DIZZINESS: Under normal circumstances, your sense of balance is controlled by a number of signals that your brain receives from several locations: Eyes. No matter what your position, visual signals help you determine where your body is in space and how it's moving. Sensory nerves. These are in your skin, muscles and joints. Sensory nerves send messages to your brain about body movements and positions. Inner ear. The organ of balance in your inner ear is the vestibular labyrinth. It includes loop-shaped structures (semicircular canals) that contain fluid and fine, hair-like sensors that monitor the rotation of your head. Near the semicircular canals are the utricle and saccule, which contain tiny particles called otoconia ([id number]). These particles are attached to sensors that help detect gravity and [id number]-[id number]-[id number] motion. Good balance depends on at least two of these three sensory systems working well. For instance, closing your eyes while washing your hair in the shower doesn't mean you'll lose your balance. Signals from your inner ear and sensory nerves help keep you upright. However, if your central nervous system can't process signals from all of these locations, if the messages are contradictory, or if the sensory systems aren't functioning properly, you may experience loss of balance. Dizziness may have a number of potential causes. These may include: Vertigo Vertigo - the false sense of motion or spinning - is the most common symptom of dizziness. Sitting up or moving around may make it worse. Sometimes vertigo is severe enough to cause nausea and vomiting. Vertigo usually results from a problem with the nerves and the structures of the balance mechanism in your inner ear (vestibular system), which sense movement and changes in your head position. Abnormal rhythmic eye movements (nystagmus) almost always accompany vertigo. Causes of vertigo may include: Benign paroxysmal positional vertigo (BPPV). BPPV involves intense, brief episodes of vertigo associated with a change in the position of your head, often when you turn over in bed or sit up in the morning. It occurs when normal calcium carbonate crystals (otoconia) break loose and fall into the wrong part of the canals in your inner ear. When these particles shift, they stimulate sensors in your ear, producing an episode of vertigo. Doctors don't know what causes BPPV, but it may be a natural result of aging. Trauma to your head also may lead to BPPV. Inflammation in the inner ear. Signs and symptoms of inflammation of the inner ear (acute vestibular neuronitis or labyrinthitis) include sudden, intense vertigo that may persist for several days, with nausea and vomiting. It can be incapacitating, requiring bed rest to minimize the signs and symptoms. Fortunately, vestibular neuronitis generally subsides and clears up on its own. Recovery time may be shorter with vestibular rehabilitation exercises. Although the cause of this condition is unknown, it may be a viral infection. Meniere's disease. This disease involves the excessive buildup of fluid in your inner ear. It may affect adults at any age and is characterized by sudden episodes of vertigo lasting 30 minutes to an hour or longer. Other signs and symptoms include the feeling of fullness in your ear, buzzing or ringing in your ear (tinnitus), and fluctuating hearing loss. The cause of Meniere's disease is unknown. Vestibular migraine. People who experience a vestibular migraine are very sensitive to motion. Dizziness and vertigo caused by a vestibular migraine may be triggered by turning your head quickly, being in a crowded or confusing place, driving or riding in a vehicle, or even watching movement on TV. A vestibular migraine may cause feelings of imbalance or unsteadiness, hearing loss, "muffled" hearing, or ringing in your ears (tinnitus). For most people with a vestibular migraine, vertigo doesn't necessarily happen at the same time as the headache. Instead, typical migraine triggers may lead to vertigo without an actual migraine. Attacks of migrainous vertigo can last from a few minutes to several days. Acoustic neuroma. An acoustic neuroma (schwannoma) is a noncancerous (benign) growth on the acoustic nerve, which connects the inner ear to your brain. Signs and symptoms of an acoustic neuroma may include dizziness, loss of balance, hearing loss and tinnitus. Rapid changes in motion. Riding on roller coasters or in boats, cars or even airplanes may on occasion make you dizzy. Other causes. Rarely, vertigo can be a symptom of a more serious neurological problem such as a stroke, brain hemorrhage or multiple sclerosis. Feeling of faintness (presyncope) "Presyncope" is the medical term for feeling faint and lightheaded without losing consciousness. Sometimes nausea, pale skin and a sense of dizziness accompany a feeling of faintness. Causes of presyncope include: Drop in blood pressure (orthostatic hypotension). A dramatic drop in your systolic blood pressure - the higher number in your blood pressure reading - may result in lightheadedness or a feeling of faintness. It can occur after sitting up or standing too quickly. Inadequate output of blood from the heart. Conditions such as partially blocked arteries (atherosclerosis), disease of the heart muscle (cardiom yopathy), abnormal heart rhythm (arrhythmia) or a decrease in blood volume may cause inadequate blood flow from your heart. Loss of balance (disequilibrium) Disequilibrium is the loss of balance or the feeling of unsteadiness when you walk. Causes may include: Inner ear (vestibular) problems. Abnormalities with your inner ear can cause you to feel like you are floating, have a heavy head or are unsteady in the dark. Sensory disorders. Failing vision and nerve damage in your legs (peripheral neuropathy) are common in older adultsand may result in difficulty maintaining your balance. Joint and muscle problems. Muscle weakness and osteoarthritis - the type of arthritis that involves wear and tear of your joints - can contribute to loss of balance when it involves your weight-bearing joints. Medications. Loss of balance can be a side effect of certain medications, such as anti-seizure drugs, sedatives and tranquilizers. Lightheadedness and other kinds of dizziness Feeling lightheaded is the feeling of being "spaced out" or having the sensation of spinning inside your head. It can also give you the sensation that if your lightheadedness worsens, you might lose consciousness. Causes may include: Inner ear disorders. These abnormalities of your inner ear can lead to illusions of motion and make you feel like you're floating. Anxiety disorders. Certain anxiety disorders, such as panic attacks and a fear of leaving home or being in large, open spaces (agoraphobia), may cause lightheadedness. Hyperventilation. Abnormally rapid breathing that often accompanies anxiety disorders may make you feel lightheaded. Viral Syndrome The physician has diagnosed a likely viral infection. Viruses not only cause "colds," but can cause many different symptoms including generalized aching, fever, headache, cough, diarrhea, nausea, vomiting, and fatigue. The treatment, for the most part, is simply relief of symptoms. This means that antibiotics are usually not given. Rest, fluids, pain medications and, occ asionally, medication for the specific symptoms that are most bothersome will be prescribed. Use good handwashing to avoid passing the virus to others. Shared toys should be cleaned with disinfectant. Clean the toilets, sinks, and counter surfaces in bathrooms. Launder clothing in hot water. Contact the physician if you develop any new or unusual symptoms such as severe headache, stiff neck, high fever, chest pain, productive cough, or shortness of breath. You should be rechecked if you don't see marked improvement within seven to 10 days. FOLLOW-UP CARE: If you have been referred to a physician for follow-up care, call the physicians office for an appointment as you were instructed or within the next two days. If you experience worsening or a significant change in your symptoms, notify the physician immediately or return to the Emergency Department at any time for re-evaluation. At this time, your entire workup is normal. Your CT scan of your brain is normal. Your EKG is normal. All of your lab studies are normal, as well. You may have a viral illness. If you continue to have symptoms for another 3 or 4 days, such as by next Friday or so, come back and let us reevaluate your condition. If you have worsening or new symptoms, come back at any time for us to reassess. Referrals: MARIA ELENA PIEDRA MD [Primary Care Provider] - Follow up as needed
[2018-04-02 12:36] VITALS: BP 134/82
--- NOTE | 2018-04-02 21:05 | EKG REPORT ---
SEVERITY:- BORDERLINE ECG - SINUS RHYTHM INFERIOR Q WAVES, PROBABLY NORMAL VARIATION : Confirmed by: Cande Cornejo MD 02-Apr-2018 21:04:38
== END 2018-04-02 12:41 | disposition home or self-care (01) ==
LOC: ER 09:43
DX: R42 Dizziness and giddiness (principal); B34.9 Viral infection, unspecified; R04.0 Epistaxis; F17.200 Nicotine dependence, unspecified, uncomplicated; Z87.442 Personal history of urinary calculi
CPT/HCPCS: 36415; 70450; 80053; 81001; 84703; 85025; 93005; 93010; 99284

== ENCOUNTER 2018-05-31 20:30 | Emergency (ER) | payer MEDICAID ==
[2018-05-31 20:38] VITALS: BP 116/62
[2018-05-31] MEDS ORDERED: LIDOCAINE 5% (700 MG) TRANSDERMAL ADH..PATCH TP ONE (22:30)
[2018-05-31] MEDS ORDERED: KETOROLAC TROMETHAMINE 60 MG/2 ML SDV IM ONE (22:30)
[2018-05-31] MEDS ORDERED: CYCLOBENZAPRINE HCL 10 MG TABLET PO ONE (22:30)
--- NOTE | 2018-05-31 22:58 | RADIOLOGY REPORT (SQ) ---
EXAM DESCRIPTION: XR CHEST 2 VIEWS COMPLETED DATE/TME: 05/31/2018 22:29 CLINICAL HISTORY: 33 years, Female, BL rib pain COMPARISON: 01/22/2017 chest NUMBER OF VIEWS: 2 TECHNIQUE: 2 view chest LIMITATIONS: None. FINDINGS: Heart size normal. Lungs are clear. No pneumothorax IMPRESSION: Negative chest copyright 2010 [employer]- All Rights Reserved
--- NOTE | 2018-05-31 23:46 | ER Document Report ---
HPI - HPI Patient complains to provider of: back pain Time Seen by Provider: 05/31/18 20:54 Pain Level: 5 Context: Patient is a 33-year-old female presents to the emergency department for generalized thoracic back pain intermittently for the last 24 hours. Patient states she feels as though the pain increases when she bends and twists. Also increases when she coughs. Patient is denying any injury or trauma. States she has had a generalized cough and congestion for the last 48 hours. Denying any fevers. Past medical history: Diabetes, epilepsy Medications: Patient is unknown Allergies: None Last menstrual. Started yesterday. - REPRODUCTIVE Reproductive: DENIES: : Past Medical History - General Information source: Patient - Social History Smoking Status: Unknown if Ever Smoked Family History: Reviewed & Not Pertinent Neurological Medical History: Reports: Hx Migraine, Hx Seizures Renal/ Medical History: Reports: Hx Kidney Stones. Denies: Hx Peritoneal Dialysis Musculoskeletal Medical History: Reports Hx Arthritis Psychiatric Medical History: Reports: Hx Anxiety, Hx Bipolar Disorder, Hx Depression Past Surgical History: Reports: Hx Section - Immunizations Hx Diphtheria, Pertussis, Tetanus Vaccination: No - unknown Vertical Provider Document - CONSTITUTIONAL Agree With Documented VS: Yes Notes: GENERAL: Alert, interacts well. No acute distress. HEAD: Normocephalic, atraumatic. EYES: Pupils equal, round, and reactive to light. Extraocular movements intact. ENT: Oral mucosa moist, tongue midline. Nares patent, TM's intact, nonerythematous, nonbulging bilaterally. Pharynx within normal limits no palatal petechiae noted NECK: Full range of motion. Supple. Trachea midline. LUNGS: Clear to auscultation bilaterally, no wheezes, rales, or rhonchi. No respiratory distress. Chest: No crepitus felt, no erythema or ecchymosis noted anterior posterior chest wall. Patient has thoracic paraspinal bilateral rib pain radiating under bilateral axillary. HEART: Regular rate and rhythm. No murmur ABDOMEN: Soft, non-tender. Non-distended. Bowel sounds present in all 4 quadrants. EXTREMITIES: Moves all 4 extremities spontaneously. No edema, normal radial and dorsalis pedis pulses bilaterally. No cyanosis. BACK: no cervical, thoracic, lumbar midline tenderness. No saddle anesthesia, normal distal neurovascular exam. NEUROLOGICAL: Alert and oriented x3. Normal speech. cranial nerves II through XII grossly intact. PSYCH: Normal affect, normal mood. SKIN: Warm, dry, normal turgor. No rashes or lesions noted. - INFECTION CONTROL TRAVEL OUTSIDE OF THE [place] IN LAST 30 DAYS: No Course - Re-evaluation Re-evalutation: Patient's chest x-ray reveals no signs of abnormalities. She has been treated with Toradol, Flexeril, Lidoderm patch in the emergency department. States pain is overall a lot better. Discussed with her stretching activities and close follow-up with primary care provider. Patient voices understanding is stable for discharge. - Vital Signs Vital signs: Temp Pulse Resp BP Pulse Ox 98.2 F 77 18 116/62 97 05/31/18 20:36 05/31/18 20:36 05/31/18 20:36 05/31/18 20:36 05/31/18 20:36 Discharge - Discharge Clinical Impression: Acute thoracic back pain Qualifiers: Back pain laterality: bilateral Qualified Code(s): M54.6 - Pain in thoracic spine Condition: Stable Disposition: HOME, SELF-CARE Instructions: Muscle Strain ([facility]), Pain Medication Injection ([facility]), Warm Packs ([facility]) Additional Instructions: You have been seen and treated in the ED for your thoracic back pain. Your x- rays revealed no signs of abnormalities. Please make sure you take medications as prescribed and particular stretches I have provided. Please also follow-up with your primary care provider in the next 24 to 48 hours. Please return to the emergency room for any other concerning symptoms. Prescriptions: Cyclobenzaprine HCl [Flexeril 10 mg Tablet] 10 mg PO TIDP PRN #15 tab PRN Reason: Naproxen 500 mg PO BID #20 tablet Forms: Return to Work
== END 2018-06-01 00:09 | disposition home or self-care (01) ==
LOC: ER 20:30
DX: M54.6 Pain in thoracic spine (principal); R07.81 Pleurodynia; R05 Cough; E11.9 Type 2 diabetes mellitus without complications
CPT/HCPCS: 99283; 71046; J3490 ×2; J1885

== ENCOUNTER 2018-06-26 11:49 | Emergency (ER) | payer MEDICAID ==
[2018-06-26 11:55] VITALS: BP 129/81
[2018-06-26] MEDS ORDERED: LORATADINE 10 MG TABLET PO ONE (12:17)
[2018-06-26] MEDS ORDERED: GUAIFENESIN 600 MG TABLET.SA PO ONE (12:18)
[2018-06-26] MEDS ORDERED: ACETAMINOPHEN 325 MG TABLET PO ONE (12:18)
[2018-06-26] MEDS ORDERED: PSEUDOEPHEDRINE HCL 30 MG TABLET PO ONE (12:18)
--- NOTE | 2018-06-26 12:19 | ER Document Report ---
ED ENT - General Chief Complaint: Shortness Of Breath Stated Complaint: SORE THROAT Time Seen by Provider: 06/26/18 12:17 Mode of Arrival: Ambulatory Information source: Patient Notes: 33-year-old female presented to ED for cough cold congestion sore throat runny nose and headache. Patient states she has not had any fever. She has been sick for couple days. She is alert oriented respirations regular and unlabored speaking in full sentences walks with a even steady gait. She does have a history of seizures but none since 2001. She is also had a . Patient denies any smoking drinking or any drugs. TRAVEL OUTSIDE OF THE [place] IN LAST 30 DAYS: No - HPI Patient complains to provider of: Nose problem, Throat problem Onset: Other - 2 days Onset/Duration: Gradual Quality of pain: Achy Severity: Mild Pain Level: 1 Context: Recent Illness Location of pain: Nose, Sinus, Throat Associated symptoms: Congestion, Cough, Runny nose, Sinus pain, Sinus drainage, Sore throat. denies: Fever Similar symptoms previously: Yes Recently seen / treated by doctor: No - Related Data Allergies/Adverse Reactions: No Known Allergies Allergy (Verified 06/26/18 12:01) Past Medical History - General Information source: Patient - Social History Smoking Status: Former Smoker Frequency of alcohol use: None Drug Abuse: None Lives with: Family Family History: Reviewed & Not Pertinent Patient has suicidal ideation: No Patient has homicidal ideation: No - Past Medical History Cardiac Medical History: Reports: None Pulmonary Medical History: Reports: None EENT Medical History: Reports: None Neurological Medical History: Reports: Hx Migraine, Hx Seizures Endocrine Medical History: Reports: None Renal/ Medical History: Reports: Hx Kidney Stones Malignancy Medical History: Reports: None GI Medical History: Reports: None Musculoskeletal Medical History: Reports Hx Arthritis Skin Medical History: Reports None Psychiatric Medical History: Reports: Hx Anxiety, Hx Bipolar Disorder, Hx Depression Traumatic Medical History: Reports: None Past Surgical History: Reports: Hx Section, Other - Cyst from neck - Immunizations Hx Diphtheria, Pertussis, Tetanus Vaccination: No - unknown Review of Systems - Review of Systems Constitutional: Recent illness. denies: Fever EENT: Nose congestion, Nose discharge, Sinus pressure, Sinus discharge, Throat pain Cardiovascular: No symptoms reported Respiratory: Cough Gastrointestinal: No symptoms reported Genitourinary: No symptoms reported Female Genitourinary: No symptoms reported Musculoskeletal: No symptoms reported Skin: No symptoms reported Hematologic/Lymphatic: No symptoms reported Neurological/Psychological: No symptoms reported Physical Exam - Vital signs Vitals: Temp Pulse Resp BP Pulse Ox 98.1 F 81 16 129/81 H 96 06/26/18 11:54 06/26/18 11:54 06/26/18 11:54 06/26/18 11:54 06/26/18 11:54 Interpretation: Normal - General General appearance: Appears well, Alert - HEENT Head: Normocephalic, Atraumatic Eyes: Normal Pupils: PERRL Ears: Normal External canal: Normal Tympanic membrane: Normal Sinus: Normal Nasal: Purulent discharge, Swelling Mouth/Lips: Normal Mucous membranes: Normal Pharynx: Post nasal drainage Neck: Normal - Respiratory Respiratory status: No respiratory distress Chest status: Nontender Breath sounds: Nonproductive cough. No: Decreased air movement, Productive cough, Rales, Rhonchi, Stridor, Wheezing Chest palpation: Normal - Cardiovascular Rhythm: Regular Heart sounds: Normal auscultation Murmur: No - Abdominal Inspection: Normal Distension: No distension Bowel sounds: Normal Tenderness: Nontender Organomegaly: No organomegaly - Back Back: Normal, Nontender - Extremities General upper extremity: Normal inspection, Nontender, Normal color, Normal ROM, Normal temperature General lower extremity: Normal inspection, Nontender, Normal color, Normal ROM, Normal temperature, Normal weight bearing. No: Rachel's sign - Neurological Neuro grossly intact: Yes Cognition: Normal Orientation: AAOx4 [place] Coma Scale Eye Opening: Spontaneous [place] Coma Scale Verbal: Oriented [place] Coma Scale Motor: Obeys Commands [place] Coma Scale Total: 15 Speech: Normal Motor strength normal: LUE, RUE, LLE, RLE Sensory: Normal - Psychological Associated symptoms: Normal affect, Normal mood - Skin Skin Temperature: Warm Skin Moisture: Dry Skin Color: Normal Course - Re-evaluation Re-evalutation: 06/26/18 15:24 After performing a Medical Screening Examination, I estimate there is LOW risk for ACUTE CORONARY SYNDROME, RESPIRATORY FAILURE, SEPSIS OR MENINGITIS, thus I consider the discharge disposition reasonable. I have reevaluated this patient multiple times and no significant life threatening changes are noted. The patient and I have discussed the diagnosis and risks, and we agree with discharging home with close follow-up. We also discussed returning to the Emergency Department immediately if new or worsening symptoms occur. We have discussed the symptoms which are most concerning (e.g., changing or worsening pain, trouble swallowing or breathing, neck stiffness, fever) that necessitate immediate return. - Vital Signs Vital signs: Temp Pulse Resp BP Pulse Ox 98.1 F 81 16 129/81 H 96 06/26/18 11:54 06/26/18 11:54 06/26/18 11:54 06/26/18 11:54 06/26/18 11:54 Discharge - Discharge Clinical Impression: URI (upper respiratory infection) Qualifiers: URI type: unspecified viral URI Qualified Code(s): J06.9 - Acute upper respiratory infection, unspecified Condition: Stable Disposition: HOME, SELF-CARE Instructions: Family Physicians / Practices Additional Instructions: UPPER RESPIRATORY ILLNESS: You have a viral infection of the respiratory passages -- a "cold." This common infection causes nasal congestion, drainage, and often sore throat and cough. It is highly contagious. The disease usually lasts about 10 to 14 days. There is no "cure" for the viral infection -- it must run its course. If there is a complication, such as bacterial infection in the nose, sinuses, middle ear, or bronchial tubes, antibiotics may be required. The antibiotics won't affect the virus. Drink plenty of fluids. A humidifier may help. An expectorant medication or decongestant may make you more comfortable. Use acetaminophen or ibuprofen for fever or aches. See the doctor if fever persists over two days, if there is any significant worsening of your symptoms, or if you simply fail to improve as expected. DECONGESTANT MEDICATION: A decongestant medicine has been suggested. Often this medicine is combined in the same tablet with an antihistamine or expectorant. This type of medicine is helpful in treating a bad cold or sinus condition, as well as in treatment of the nasal congestion of hay fever. It is not of much benefit for lung infections. Decongestant medicines are related to stimulants. They can cause an increase in blood pressure and heart rate. Persons with heart disease and high blood pressure should not take decongestants without discussing this with the physician. If you develop palpitations, chest pain, headache, or tremors, stop the medicine and consult your physician. COUGH-SUPPRESSANT & EXPECTORANT MEDICATION: You are to use a cough medication as needed for relief of symptoms. This medicine is a combination of an expectorant (to make the mucous thinner and more easily "coughed up") and a cough suppressant (to reduce the frequency of cough ing). The cough-suppressant medicine is related to narcotics. You may experience mild nausea and sleepiness. Some patients who are very sensitive to narcotics may have stomach pain from this medicine. Taking the medicine with food reduces these side effects. Do not drive or work with machinery until you know how this medicine affects you. The expectorant should have no side effects. Iodine-containing expectorants (such as organidin) should not be taken by persons with active thyroid disease unless approved by your doctor. Call the doctor if you develop shortness of breath, hives, rash, itching, lightheadedness, or severe nausea and vomiting. USE OF ACETAMINOPHEN (Tylenol): Acetaminophen may be taken for pain relief or fever control. It's much safer than aspirin, offering a wider range of "safe" dosages. It is safe during . Some brand names are Tylenol, Panadol, Datril, Anacin 3, Tempra, and Liquiprin. Acetaminophen can be repeated every four hours. The following are maximum recommended dosages: >89 pounds or adults 650 mg to 900 mg Acetaminophen can be repeated every four hours. Maximum dose not to exceed 4000 mg a day. FOLLOW-UP CARE: If you have been referred to a physician for follow-up care, call the physicians office for an appointment as you were instructed or within the next two days. If you experience worsening or a significant change in your symptoms, notify the physician immediately or return to the Emergency Department at any time for re-evaluation.
== END 2018-06-26 12:28 | disposition home or self-care (01) ==
LOC: ER 11:49
DX: J06.9 Acute upper respiratory infection, unspecified (principal); B97.89 Other viral agents as the cause of diseases classified elsewhere; R05 Cough; R51 Headache; R09.89 Other specified symptoms and signs involving the circulatory and respiratory systems; J34.89 Other specified disorders of nose and nasal sinuses; J02.9 Acute pharyngitis, unspecified; R09.81 Nasal congestion; Z87.891 Personal history of nicotine dependence; R09.82 Postnasal drip
CPT/HCPCS: 99283; J3490 ×3

== ENCOUNTER 2019-01-18 15:00 | Emergency (ER) | payer MEDICAID | END 2019-01-18 15:45 | disposition left against medical advice (07) | LOC: ER 15:00 | DX: Z53.21 Procedure and treatment not carried out due to patient leaving prior to being seen by health care provider (principal) ==

== ENCOUNTER 2019-03-10 16:43 | Emergency (ER) | payer MEDICAID ==
--- NOTE | 2019-03-10 17:15 | ER Document Report ---
ED Medical Screen (RME) - General Chief Complaint: Headache Stated Complaint: HEADACHE,NAUSEA Time Seen by Provider: 03/10/19 16:54 Notes: 33-year-old G8, P1 16-week female presents to the emergency department with several complaints, chief among them nausea and vomiting. Patient states that she cannot tolerate any food. Patient complains of a mild cough, severe headache, and is taking an excessive amount of Tylenol. Patient states she has not gotten her influenza vaccine. Exam: Well-appearing no acute distress, lungs are clear to auscultation all mak. Cardiac rate and rhythm, S1-S2 heard, no murmurs I have greeted and performed a rapid initial assessment of this patient. A comprehensive ED assessment and evaluation of the patient, analysis of test results and completion of medical decision making process will be conducted by an additional ED providers. TRAVEL OUTSIDE OF THE [place] IN LAST 30 DAYS: No - Related Data Allergies/Adverse Reactions: No Known Allergies Allergy (Verified 03/10/19 16:53) Home Medications: Tylenol Past Medical History - Social History Chew tobacco use (# tins/day): No Drug Abuse: None Neurological Medical History: Reports: Hx Migraine, Hx Seizures Renal/ Medical History: Reports: Hx Kidney Stones. Denies: Hx Peritoneal Dialysis Musculoskeltal Medical History: Reports Hx Arthritis Psychiatric Medical History: Reports: Hx Anxiety, Hx Bipolar Disorder, Hx Depression Past Surgical History: Reports: Hx Section, Other - Cyst from neck - Immunizations Hx Diphtheria, Pertussis, Tetanus Vaccination: No - unknown Physical Exam - Vital signs Vitals: Temp Pulse Resp BP Pulse Ox 97.9 F 86 18 134/65 H 97 03/10/19 16:46 03/10/19 16:46 03/10/19 16:46 03/10/19 16:46 03/10/19 16:46 Course - Vital Signs Vital signs: Temp Pulse Resp BP Pulse Ox 97.9 F 86 18 134/65 H 97 03/10/19 16:46 03/10/19 16:46 03/10/19 16:46 03/10/19 16:46 03/10/19 16:46
[2019-03-10] MEDS ORDERED: NORMAL SALINE 1000 ML 1,000 ML IV ONE (17:16)
[2019-03-10] MEDS ORDERED: METOCLOPRAMIDE HCL INJ/PF 10 MG/2 ML SDV IV ONE (17:16)
[2019-03-10 18:13] LABS: APPEARANCE,URINE SLIGHTLY-CLOUDY; BILIRUBIN,URINE NEGATIVE (NEGATIVE); COLOR,URINE YELLOW; GLUCOSE, URINE NEGATIVE (NEGATIVE); KETONES,URINE NEGATIVE (NEGATIVE); LEUKOCYTE ESTERASE,URINE NEGATIVE (NEGATIVE); NITRITE,URINE NEGATIVE (NEGATIVE); PROTEIN,URINE NEGATIVE (NEGATIVE); URINE SPECIFIC GRAVITY 1.021; UROBILINOGEN,URINE NEGATIVE mg/dL (<2.0)
[2019-03-10 18:22] LABS: ABSOLUTE BASOPHILS # (AUTO) 0.1 10^3/uL (0.0-0.2); ABSOLUTE EOSINOPHILS # (AUTO) 0.1 10^3/uL (0.0-0.6); ABSOLUTE LYMPHOCYTES (AUTO) 3.2 10^3/uL (0.5-4.7); ABSOLUTE NEUT (AUTO) 7.2 10^3/uL (1.7-8.2); BASOPHILS % (AUTO) 0.7 % (0-2); EOSINOPHILS % (AUTO) 0.9 % (0-6); HEMATOCRIT 36.9 % (36.0-47.0); HEMOGLOBIN 12.8 g/dL (12.0-15.5); LYMPHOCYTES % (AUTO) 27.9 % (13-45); MEAN CORPUSCULAR HEMOGLOBIN 28.4 pg (27.0-33.4); MEAN CORPUSCULAR HGB CONC 34.6 g/dL (32.0-36.0); MEAN CORPUSCULAR VOLUME 82 fl (80-97); MONOCYTES % (AUTO) 8.3 % (3-13); PLATELET COUNT 291 10^3/uL (150-450); RED CELL DISTRIBUTION WIDTH 13.6 % (11.5-14.0); SEGMENTED NEUTROPHILS % (AUTO) 62.2 % (42-78); TOTAL CELLS COUNTED % (AUTO) 100 %; WHITE BLOOD COUNT 11.6 10^3/uL (4.0-10.5)
[2019-03-10 18:23] LABS: ALKALINE PHOSPHATASE 51 U/L (38-126); ANION GAP 12 (5-19); ASPARTATE AMINO TRANSFERASE 23 U/L (14-36); BILIRUBIN,DIRECT 0.2 mg/dL (0.0-0.4); BILIRUBIN,TOTAL 0.3 mg/dL (0.2-1.3); BLOOD UREA NITROGEN 11 mg/dL (7-20); CALCIUM 10.1 mg/dL (8.4-10.2); CARBON DIOXIDE 23 mmol/L (22-30); CHLORIDE 103 mmol/L (98-107); GLUCOSE 81 mg/dL (75-110); POTASSIUM 3.9 mmol/L (3.6-5.0); TOTAL PROTEIN 7.8 g/dL (6.3-8.2)
[2019-03-10 18:52] LABS: A TYPE INFLUENZA AG NEGATIVE (NEGATIVE); B INFLUENZA AG NEGATIVE (NEGATIVE)
--- NOTE | 2019-03-10 19:11 | ER Document Report ---
ED General - General Chief Complaint: Headache Stated Complaint: HEADACHE,NAUSEA Time Seen by Provider: 03/10/19 16:54 Primary Care Provider: MARIA ELENA PIEDRA MD [Primary Care Provider] - Follow up in 3-5 days Notes: 33-year-old 16-week female presents for headache that started this morning at 5 AM. Patient also states she had associated nausea and vomiting 1 time. Patient thinks that she may have also taken too much Tylenol. Patient states she had history of the similar types of headaches previously with a similar pattern. Patient also states that her temperature was 99 at home. Patient denies any vaginal bleeding, abdominal pain, pelvic pain, vaginal discharge, or any related complaints. TRAVEL OUTSIDE OF THE [place] IN LAST 30 DAYS: No - Related Data Allergies/Adverse Reactions: No Known Allergies Allergy (Verified 03/10/19 16:53) Home Medications: Tylenol Past Medical History - Social History Smoking Status: Never Smoker Chew tobacco use (# tins/day): No Drug Abuse: None Family History: Reviewed & Not Pertinent Patient has suicidal ideation: No Patient has homicidal ideation: No Neurological Medical History: Reports: Hx Migraine, Hx Seizures Renal/ Medical History: Reports: Hx Kidney Stones. Denies: Hx Peritoneal Dialysis Musculoskeletal Medical History: Reports Hx Arthritis Psychiatric Medical History: Reports: Hx Anxiety, Hx Bipolar Disorder, Hx Depression Past Surgical History: Reports: Hx Section, Other - Cyst from neck - Immunizations Hx Diphtheria, Pertussis, Tetanus Vaccination: No - unknown Review of Systems - Review of Systems Notes: Constitutional: Negative for fever. HENT: Negative for sore throat. Eyes: Negative for visual changes. Cardiovascular: Negative for chest pain. Respiratory: Negative for shortness of breath. Gastrointestinal: Positive for nausea/vomiting. Negative for abdominal pain or diarrhea. Genitourinary: Negative for dysuria. Musculoskeletal: Negative for back pain. Skin: Negative for rash. Neurological: Positive for headache. Negative for weakness or numbness. 10 point ROS negative except as marked above and in HPI. Physical Exam - Vital signs Vitals: Temp Pulse Resp BP Pulse Ox 97.9 F 86 18 134/65 H 97 03/10/19 16:46 03/10/19 16:46 03/10/19 16:46 03/10/19 16:46 03/10/19 16:46 - Notes Notes: GENERAL: Well-appearing, well-nourished and in no acute distress. HEAD: Atraumatic, normocephalic. EYES: Extraocular movements intact, sclera anicteric, conjunctiva are normal. NECK: Normal range of motion, supple without lymphadenopathy or JVD. LUNGS: Breath sounds clear to auscultation bilaterally and equal. No wheezes rales or rhonchi. HEART: Regular rate and rhythm without murmurs, rubs or gallops. ABDOMEN: Soft, nontender, normoactive bowel sounds. No guarding, no rebound. No masses appreciated. EXTREMITIES: Normal range of motion, no pitting or edema. No clubbing or cyanosis. NEUROLOGICAL: Cranial nerves II through XII grossly intact. Normal speech, normal gait. PSYCH: Normal mood, normal affect. SKIN: Warm, Dry, normal turgor, no rashes or lesions noted. Course - Re-evaluation Re-evalutation: 03/10/19 33-year-old female presents with headache. Patient is 16-week pregn ant. Patient has no related complaints. Patient states this headache is similar to previous. Patient was given Reglan and 1 bolus IV fluids. Lab work is unremarkable. Patient is afebrile. Brudzinski is negative. Patient's Tylenol level is negligible. Test is negative. Patient's headache has been completely relieved with Reglan. Patient will be prescribed this and given close follow-up with her primary care doctor/MRI ASSISTANT in 3 to 5 days. Strict return precautions given. Patient voices understanding and agrees with plan of care. - Vital Signs Vital signs: Temp Pulse Resp BP Pulse Ox 97.9 F 86 18 134/65 H 97 03/10/19 16:46 03/10/19 16:46 03/10/19 16:46 03/10/19 16:46 03/10/19 16:46 - Laboratory Result Diagrams: 03/10/19 17:47 03/10/19 17:47 Laboratory results interpreted by me: 03/10/19 03/10/19 03/10/19 17:47 17:47 17:47 WBC 11.6 H Creatinine 0.47 L Acetaminophen < 10 L Discharge - Discharge Clinical Impression: Headache Qualifiers: Headache type: unspecified Headache chronicity pattern: acute headache Intractability: not intractable Qualified Code(s): R51 - Headache Nausea & vomiting Qualifiers: Vomiting type: unspecified Vomiting Intractability: unspecified Qualified Code(s): R11.2 - Nausea with vomiting, unspecified Qualifiers: Weeks of gestation: 16 weeks Qualified Code(s): Z3A.16 - 16 weeks gestation of Condition: Stable Disposition: HOME, SELF-CARE Instructions: Reglan ([facility]) Additional Instructions: Your lab work was reassuring. Your flu test was negative. Her Tylenol level was negative. Please take Reglan as prescribed. Please follow-up with your PIPE STRESS ENGINEER/PCP in 3 to 5 days. Return to ER immediately if you start having any worsening symptoms, including worsening headache, vomiting not controlled by medication, vaginal bleeding/discharge, pelvic pain, abdominal pain, fever, neck pain, or any other symptoms that are concerning to you. Prescriptions: Metoclopramide HCl [Reglan 10 mg Tablet] 1 - 2 tab PO ASDIR PRN #25 tablet PRN Reason: Referrals: MARIA ELENA PIEDRA MD [Primary Care Provider] - Follow up in 3-5 days
[2019-03-10 19:27] VITALS: BP 119/46
== END 2019-03-10 19:28 | disposition home or self-care (01) ==
LOC: ER 16:43
DX: O26.92 Pregnancy related conditions, unspecified, second trimester (principal); R51 Headache; O21.9 Vomiting of pregnancy, unspecified; Z3A.16 16 weeks gestation of pregnancy; Z87.442 Personal history of urinary calculi
CPT/HCPCS: 99284; 96361; 96374; 36415; 80307; 85025; 80053; 81001; 87804; J2765; J7030

== ENCOUNTER 2019-05-02 10:45 | Emergency (ER) | payer MEDICAID ==
[2019-05-02 10:57] VITALS: BP 133/66
--- NOTE | 2019-05-02 12:09 | RADIOLOGY REPORT (SQ) ---
EXAM DESCRIPTION: HAND RIGHT 3 VIEWS COMPLETED DATE/TIME: 05/02/2019 11:49 am REASON FOR STUDY: hand pain, no injury COMPARISON: None. EXAM PARAMETERS: NUMBER OF VIEWS: Three views. TECHNIQUE: AP, lateral and oblique radiographic images acquired of the right hand. LIMITATIONS: None. FINDINGS: MINERALIZATION: Normal. BONES: No acute fracture or dislocation. No worrisome bone lesions. No significant osteophytes. JOINTS: No erosions. No julia-articular osteopenia. No chondrocalcinosis. SOFT TISSUES: No swelling. No calcifications. OTHER: No other significant finding. IMPRESSION: NEGATIVE STUDY OF THE RIGHT HAND. NO EXPLANATION FOR PAIN. TECHNICAL DOCUMENTATION: JOB ID: [id number] 2010 [employer]- All Rights Reserved Reading location - IP/workstation name: [email or web address]
--- NOTE | 2019-05-02 13:37 | ER Document Report ---
HPI - HPI Time Seen by Provider: 05/02/19 11:16 Pain Level: 4 Notes: 33-year-old female patient presenting to the emergency department chief complaint of right hand pain. Patient reports pain ongoing for the last few days. Denies any known injury. She also reports reduced strength in this hand. She states that she is in her second trimester of and has had some other strange symptoms such as numbness in her left arm a few days ago which resolved on its own. Patient denies any specific injury, denies any recent heavy lifting. Denies any neck pain. - CONSTITUTIONAL Constitutional: DENIES: Fever, Chills - REPRODUCTIVE Reproductive: REPORTS: : - MUSCULOSKELETAL Musculoskeletal: REPORTS: Extremity pain Past Medical History - General Information source: Patient - Social History Smoking Status: Former Smoker Chew tobacco use (# tins/day): No Frequency of alcohol use: None Drug Abuse: None Family History: Reviewed & Not Pertinent Patient has suicidal ideation: No Patient has homicidal ideation: No Neurological Medical History: Reports: Hx Migraine, Hx Seizures Renal/ Medical History: Reports: Hx Kidney Stones. Denies: Hx Peritoneal Dialysis Musculoskeletal Medical History: Reports Hx Arthritis Psychiatric Medical History: Reports: Hx Anxiety, Hx Bipolar Disorder, Hx Depression Past Surgical History: Reports: Hx Section, Other - Cyst from neck - Immunizations Hx Diphtheria, Pertussis, Tetanus Vaccination: No - unknown Vertical Provider Document - CONSTITUTIONAL Notes: PHYSICAL EXAMINATION: GENERAL: Well-appearing, well-nourished and in no acute distress. HEAD: Atraumatic, normocephalic. EYES: Pupils equal round extraocular movements intact, conjunctiva are normal. ENT: Nares patent NECK: Normal range of motion LUNGS: No respiratory distress Musculoskeletal: Normal range of motion to bilateral hands, strong radial pulse to right hand, equal talent sourcer strength bilaterally, cap refill less than 3 seconds. NEUROLOGICAL: Normal speech, normal gait. PSYCH: Normal mood, normal affect. SKIN: Warm, Dry, normal turgor, no rashes or lesions noted. - INFECTION CONTROL TRAVEL OUTSIDE OF THE [place] IN LAST 30 DAYS: No Course - Re-evaluation Re-evalutation: Hand X-Ray 05/02/19 11:21 IMPRESSION: NEGATIVE STUDY OF THE RIGHT HAND. NO EXPLANATION FOR PAIN. - Vital Signs Vital signs: Temp Pulse Resp BP Pulse Ox 98.0 F 98 16 133/66 H 95 05/02/19 10:54 05/02/19 10:54 05/02/19 10:54 05/02/19 10:54 05/02/19 10:54 Procedures - Immobilization Right wrist Pre-Proc Neuro Vasc Exam: Normal Immobilizer type: Cock-up Performed by: PCT Post-Proc Neuro Vasc Exam: Normal Discharge - Discharge Clinical Impression: Right hand pain Condition: Stable Disposition: HOME, SELF-CARE Additional Instructions: The x-ray today was negative. Please continue taking Tylenol as this is safe during . Please follow-up with orthopedics for further evaluation of your hand pain. Their phone number is below. Referrals: ARCADIO COX DO [ACTIVE STAFF] - Follow up as needed
== END 2019-05-02 13:59 | disposition home or self-care (01) ==
LOC: ER 10:45
DX: O99.89 Other specified diseases and conditions complicating pregnancy, childbirth and the puerperium (principal); M79.641 Pain in right hand; Z3A.00 Weeks of gestation of pregnancy not specified; Z87.891 Personal history of nicotine dependence
CPT/HCPCS: 99283

== ENCOUNTER → 2019-05-12 | Outpatient (CLI) | payer MEDICAID ==
[~2019-05-12] MED LIST: HYDROXYZINE PAMOATE 50 MG CAPSULE ONE; HYDROXYZINE PAMOATE 50 MG CAPSULE PO ONE
[2019-05-12 16:37] LABS: APPEARANCE,URINE SLIGHTLY-CLOUDY; BILIRUBIN,URINE NEGATIVE (NEGATIVE); COLOR,URINE YELLOW; GLUCOSE, URINE NEGATIVE (NEGATIVE); KETONES,URINE 80 mg/dL (NEGATIVE); LEUKOCYTE ESTERASE,URINE NEGATIVE (NEGATIVE); NITRITE,URINE NEGATIVE (NEGATIVE); PROTEIN,URINE NEGATIVE (NEGATIVE); URINE SPECIFIC GRAVITY 1.016; UROBILINOGEN,URINE NEGATIVE mg/dL (<2.0)
[2019-05-12 16:58] LABS: URINE AMPHETAMINES SCREEN NEGATIVE; URINE BARBITURATES SCREEN NEGATIVE; URINE BENZODIAZEPINES SCREEN NEGATIVE; URINE COCAINE SCREEN NEGATIVE; URINE METHADONE SCREEN NEGATIVE; URINE PHENCYCLIDINE SCREEN NEGATIVE
[2019-05-12 17:11] LABS: URINE MARIJUANA (THC) SCREEN UNCONFIRMED POSITIVE
== END ==
LOC: LC 15:37
PROVIDERS: ATTEND Obstetrics & Gynecology
PROC: 4A1HXCZ Monitoring of Products of Conception, Cardiac Rate, External Approach (ICD-10-PCS; principal; 2019-05-12)
DX: O09.522 Supervision of elderly multigravida, second trimester (principal); Z3A.24 24 weeks gestation of pregnancy
CPT/HCPCS: 59899; 81001; 80307; G0480 ×2; J3490; 80349

== ENCOUNTER → 2019-08-12 | Outpatient (CLI) | payer MEDICAID ==
[2019-08-12 12:34] LABS: ABSOLUTE BASOPHILS # (AUTO) 0.1 10^3/uL (0.0-0.2); ABSOLUTE EOSINOPHILS # (AUTO) 0.1 10^3/uL (0.0-0.6); ABSOLUTE MONOCYTES (AUTO) 1.5 10^3/uL (0.1-1.4); ABSOLUTE NEUT (AUTO) 11.5 10^3/uL (1.7-8.2); BASOPHILS % (AUTO) 0.6 % (0-2); EOSINOPHILS % (AUTO) 0.7 % (0-6); HEMATOCRIT 35.5 % (36.0-47.0); LYMPHOCYTES % (AUTO) 18.8 % (13-45); MEAN CORPUSCULAR HEMOGLOBIN 27.4 pg (27.0-33.4); MEAN CORPUSCULAR HGB CONC 33.7 g/dL (32.0-36.0); MEAN CORPUSCULAR VOLUME 81 fl (80-97); PLATELET COUNT 285 10^3/uL (150-450); RED BLOOD COUNT 4.36 10^6/uL (3.72-5.28); RED CELL DISTRIBUTION WIDTH 13.9 % (11.5-14.0); SEGMENTED NEUTROPHILS % (AUTO) 70.9 % (42-78); TOTAL CELLS COUNTED % (AUTO) 100 %; WHITE BLOOD COUNT 16.2 10^3/uL (4.0-10.5)
[2019-08-12 12:57] LABS: ALBUMIN 3.3 g/dL (3.5-5.0); ALKALINE PHOSPHATASE 130 U/L (38-126); ANION GAP 9 (5-19); ASPARTATE AMINO TRANSFERASE 19 U/L (14-36); BILIRUBIN,TOTAL 0.2 mg/dL (0.2-1.3); BLOOD UREA NITROGEN 6 mg/dL (7-20); CALCIUM 9.1 mg/dL (8.4-10.2); CARBON DIOXIDE 20 mmol/L (22-30); CHLORIDE 105 mmol/L (98-107); GLUCOSE 107 mg/dL (75-110); POTASSIUM 3.9 mmol/L (3.6-5.0); TOTAL PROTEIN 6.7 g/dL (6.3-8.2); URIC ACID 4.1 mg/dL (2.5-7.0)
[2019-08-12 13:00] LABS: UR PRO/CREAT RATIO RESULT 0.2 mg/mg (0.0-0.2); URINE CREATININE 163.7 mg/dL (16-327); URINE PROTEIN 27.6 mg/dL (<12)
== END ==
LOC: OD 11:39
PROVIDERS: ATTEND Obstetrics & Gynecology
DX: O13.3 Gestational [pregnancy-induced] hypertension without significant proteinuria, third trimester (principal); O09.523 Supervision of elderly multigravida, third trimester
CPT/HCPCS: 36415; 80053; 82570; 83615; 84156; 84550; 85025

== ENCOUNTER 2019-08-13 11:48 | Outpatient (CLI) | payer MEDICAID ==
[2019-08-13 12:23] LABS: APPEARANCE,URINE SLIGHTLY-CLOUDY; BILIRUBIN,URINE NEGATIVE (NEGATIVE); COLOR,URINE YELLOW; GLUCOSE, URINE NEGATIVE (NEGATIVE); KETONES,URINE NEGATIVE (NEGATIVE); LEUKOCYTE ESTERASE,URINE SMALL (NEGATIVE); NITRITE,URINE POSITIVE (NEGATIVE); PROTEIN,URINE 30 mg/dL (NEGATIVE); URINE SPECIFIC GRAVITY 1.015; UROBILINOGEN,URINE NEGATIVE mg/dL (<2.0)
[2019-08-13] MEDS ORDERED: LIDOCAINE 1% INJ-PF (10 MG/ML) 30 ML SDV INJ ONE (12:49)
[2019-08-13] MEDS ORDERED: CEFTRIAXONE INJ 1000 MG VIAL IM ONE (12:49)
[2019-08-13 12:53] LABS: URINE AMPHETAMINES SCREEN NEGATIVE; URINE BARBITURATES SCREEN NEGATIVE; URINE BENZODIAZEPINES SCREEN NEGATIVE; URINE COCAINE SCREEN NEGATIVE; URINE METHADONE SCREEN NEGATIVE; URINE PHENCYCLIDINE SCREEN NEGATIVE
[2019-08-13] MEDS ORDERED: CEFTRIAXONE INJ 1000 MG VIAL ONE (12:57)
[2019-08-13] MEDS ORDERED: LIDOCAINE 1% INJ-PF (10 MG/ML) 30 ML SDV ONE (12:57)
[2019-08-13 13:15] LABS: URINE MARIJUANA (THC) SCREEN UNCONFIRMED POSITIVE
--- NOTE | 2019-08-13 13:43 | Non Stress Test Report ---
Non Stress Test Datetime Report Generated by CPN: 08/13/2019 13:43 DEMOGRAPHIC EGA NST: 38.1 INDICATION Indication for Study (NST) Other: IUP at 38.1 VITAL SIGNS Temperature - NST: 98.2 Pulse - NST: 95 RESP - NST: 20 NBPSYS NST: 133 NBPDIA NST: 74 MONITORING Monitor Explained: Monitor Explained; Test Explained; Patient Verbalized Understanding Time on Monitor: 08/13/2019 12:07 Time off Monitor: 08/13/2019 12:47 NST Duration: 40 NST INTERVENTIONS NST Interventions: PO Hydration Physician Notified NST: Dr. Lipscomb BABY A: [id number] BABY A Movement : Present Contraction Frequency : 6-8 minutes FHR Baseline : 135 Accelerations : 15X15 Decelerations : None Variability : Moderate 6-25bpm NST Review: Meets Criteria for Reactive NST NST Review and Verified By : SAutry NST Results: Reactive NST COMMENTS NST Comments: Dr. Lipscomb on unit and strip reviewed. NST REPORT Report Trigger: Send Report
[2019-08-16 11:25] LABS: 24 HOUR URINE PROTEIN RESULT 484 mg/day (42-225); URINE PROTEIN 15.5 mg/dL (<12)
== END 2019-08-13 13:34 | disposition home or self-care (01) ==
LOC: LC 11:48
PROVIDERS: ATTEND Obstetrics & Gynecology
DX: O23.43 Unspecified infection of urinary tract in pregnancy, third trimester (principal); O09.523 Supervision of elderly multigravida, third trimester; Z3A.38 38 weeks gestation of pregnancy
CPT/HCPCS: 59025; 36415; 87086; 81005; 80307; 84112; G0480 ×2; J3490; J0696; 80349; 84156

== ENCOUNTER 2019-08-18 18:48 | Inpatient (IN) | payer MEDICAID ==
[~2019-08-18 18:48] MED LIST changes: -HYDROXYZINE PAMOATE 50 MG CAPSULE ONE; -HYDROXYZINE PAMOATE 50 MG CAPSULE PO ONE; +SUCCINYLCHOLINE CHLORIDE INJ 200 MG/10 ML VIAL ONE
[2019-08-18] MEDS ORDERED: RINGERS SOLUTION,LACTATED 1,000 ML IV PRN ×2 (19:03→23:32)
[2019-08-18] MEDS ORDERED: LIDOCAINE 1% INJ-PF (10 MG/ML) 30 ML SDV ONE (19:03)
[2019-08-18] MEDS ORDERED: OXYTOCIN 10 UNIT/ML VIAL ONE ×2 (19:03→19:15)
[2019-08-18] MEDS ORDERED: RINGERS SOLUTION,LACTATED 1,000 ML IV ONE (19:03)
[2019-08-18] MEDS ORDERED: OXYTOCIN/0.9 % SODIUM CHLORIDE 0 UNIT/0 ML RTUINJ ONE (19:03)
[2019-08-18] MEDS ORDERED: MISOPROSTOL 0.2 MG TABLET ONE (19:03)
[2019-08-18] MEDS ORDERED: CEFAZOLIN 1 GM/D5W RTU 2 GM/100 ML RTUPB IV ONE (19:10)
[2019-08-18] MEDS ORDERED: CITRIC ACID/SODIUM CITRATE ORAL SOLN 15 ML UDCUP ONE (19:10)
[2019-08-18] MEDS ORDERED: PHENYLEPHRINE HCL INJ/PF 10 MG/1 ML SDV ONE (19:15)
[2019-08-18] MEDS ORDERED: MIDAZOLAM 2 MG/2 ML INJ ONE (19:16)
[2019-08-18] MEDS ORDERED: ACETAMINOPHEN 1,000 MG/100 ML RTUPB IV ONE (19:16)
[2019-08-18] MEDS ORDERED: EPHEDRINE SULFATE INJ 50 MG/1 ML AMPULE ONE (19:16)
[2019-08-18] MEDS ORDERED: ONDANSETRON HCL INJ/PF 4 MG/2 ML SDV ONE (19:16)
[2019-08-18] MEDS ORDERED: FENTANYL CITRATE INJ/PF 100 MCG/2 ML AMPUL ONE (19:16)
[2019-08-18] MEDS ORDERED: METHYLERGONOVINE MALEATE INJ/PF 0.2 MG/1 ML AMPULE ONE (19:16)
[2019-08-18] MEDS ORDERED: PROPOFOL INJ 200 MG/20 ML VIAL IV ONE ×2 (19:19→21:14)
[2019-08-18 19:55] LABS: ABSOLUTE BASOPHILS # (AUTO) 0.1 10^3/uL (0.0-0.2); ABSOLUTE EOSINOPHILS # (AUTO) 0.1 10^3/uL (0.0-0.6); ABSOLUTE LYMPHOCYTES (AUTO) 3.4 10^3/uL (0.5-4.7); ABSOLUTE MONOCYTES (AUTO) 1.5 10^3/uL (0.1-1.4); ABSOLUTE NEUT (AUTO) 12.4 10^3/uL (1.7-8.2); BASOPHILS % (AUTO) 0.4 % (0-2); EOSINOPHILS % (AUTO) 0.4 % (0-6); HEMATOCRIT 40.2 % (36.0-47.0); HEMOGLOBIN 13.3 g/dL (12.0-15.5); LYMPHOCYTES % (AUTO) 19.3 % (13-45); MEAN CORPUSCULAR HEMOGLOBIN 27.2 pg (27.0-33.4); MEAN CORPUSCULAR VOLUME 82 fl (80-97); MONOCYTES % (AUTO) 8.5 % (3-13); PLATELET COUNT 300 10^3/uL (150-450); RED BLOOD COUNT 4.88 10^6/uL (3.72-5.28); RED CELL DISTRIBUTION WIDTH 14.6 % (11.5-14.0); SEGMENTED NEUTROPHILS % (AUTO) 71.4 % (42-78); TOTAL CELLS COUNTED % (AUTO) 100 %; WHITE BLOOD COUNT 17.4 10^3/uL (4.0-10.5)
[2019-08-18 20:41] LABS: APPEARANCE,URINE CLOUDY; BILIRUBIN,URINE NEGATIVE (NEGATIVE); COLOR,URINE YELLOW; GLUCOSE, URINE NEGATIVE (NEGATIVE); KETONES,URINE NEGATIVE (NEGATIVE); LEUKOCYTE ESTERASE,URINE NEGATIVE (NEGATIVE); NITRITE,URINE NEGATIVE (NEGATIVE); PROTEIN,URINE 30 mg/dL (NEGATIVE); URINE SPECIFIC GRAVITY 1.017; UROBILINOGEN,URINE NEGATIVE mg/dL (<2.0)
[2019-08-18 21:01] LABS: URINE AMPHETAMINES SCREEN NEGATIVE; URINE BARBITURATES SCREEN NEGATIVE; URINE BENZODIAZEPINES SCREEN NEGATIVE; URINE COCAINE SCREEN NEGATIVE; URINE METHADONE SCREEN NEGATIVE; URINE PHENCYCLIDINE SCREEN NEGATIVE
[2019-08-18 21:12] LABS: URINE MARIJUANA (THC) SCREEN UNCONFIRMED POSITIVE
[2019-08-18] MEDS ORDERED: MEPERIDINE HCL/PF INJ 25 MG/1 ML DISP.SYRIN IV PRN (22:08)
[2019-08-18] MEDS ORDERED: OXYCODONE-ACETAMINOPHEN 5-325 MG TABLET PO PRN ×3 (22:08→23:32)
[2019-08-18] MEDS ORDERED: PROMETHAZINE HCL INJ 25 MG/1 ML VIAL IV PRN ×3 (22:08→23:32)
[2019-08-18] MEDS ORDERED: DIPHENHYDRAMINE HCL 50 MG/ML VIAL IV PRN (22:08)
[2019-08-18] MEDS ORDERED: ONDANSETRON HCL INJ/PF 4 MG/2 ML SDV IV PRN (22:08)
[2019-08-18] MEDS ORDERED: MORPHINE SULFATE 10 MG/ML INJ IV PRN (22:08)
[2019-08-18] MEDS ORDERED: FENTANYL CITRATE INJ/PF 100 MCG/2 ML AMPUL IV PRN ×3 (22:08)
[2019-08-18] MEDS ORDERED: KETOROLAC TROMETHAMINE 60 MG/2 ML SDV ONE (22:32)
[2019-08-18] MEDS ORDERED: MORPHINE SULFATE 10 MG/ML INJ ONE (23:31)
[2019-08-18] MEDS ORDERED: HYDROMORPHONE HCL INJ/PF 2 MG/ML AMPULE IV PRN (23:32)
[2019-08-18] MEDS ORDERED: ACETAMINOPHEN 325 MG TABLET PO PRN (23:32)
[2019-08-18] MEDS ORDERED: OXYTOCIN/0.9 % SODIUM CHLORIDE 30 UNIT/500 ML RTUINJ IV PRN (23:32)
[2019-08-18] MEDS ORDERED: MEASLES,MUMPS&RUBELLA VACC/PF 0.5 ML VIAL SUBCUT PRN (23:32)
[2019-08-18] MEDS ORDERED: SIMETHICONE 80 MG TAB.CHEW PO PRN (23:32)
[2019-08-18] MEDS ORDERED: DIPH/PERTUSS(ACELL)/TETANUS VAC/PF 0.5 ML SYR (>=10YO) IM PRN (23:32)
--- NOTE | 2019-08-18 23:39 | PDOC DELIVERY SUMMARY ---
Delivery Summary - Maternal Hx : II Hx Para: I Hx # Term Pregnancies: 1 Hx # Pregnancies: 0 Hx Total # of Abortions (Sponateous & Elective): 0 Number of Living Children: 1 LASHAE: 08/26/19 Gestational Age: 38.6 Risk Factors: Pre-Eclampsia Intrapartum: Pre-Eclampsia Ruptured Membranes: SROM Fluids: Clear - Delivery Presentation: Vertex Heart Rate Monitoring: Externally Uterine Contraction Monitoring: External Support Person Present: Yes Location: OR : Repeat Placenta: Within Normal Limits Number of Vessels (Cord): 2 Nuchal Cord: Yes - with true knot noted Estimated Blood Loss: 900 - Medications Type of Anesthesia:: GA - Delivery Personnel RN: RAFIA ARIZMENDI MD: YVON PALAFOX
--- NOTE | 2019-08-18 23:55 | Operative Report ---
Operative Report DATE OF SURGERY: 08/18/19 PREOPERATIVE DIAGNOSIS: Intrauterine at 38.5 wks EGA. History of brittany or CS. SPontaneous rupture of membranes. Active labor. AMA. Mild preeclampsia. Undesired fertility POSTOPERATIVE DIAGNOSIS: Same as above OPERATION: Repeat Cesaran section and bilateral tubal ligation SURGEON: YVON PALAFOX ANESTHESIA: GA TISSUE REMOVED OR ALTERED: Placenta COMPLICATIONS: None ESTIMATED BLOOD LOSS: 900 INTRAOPERATIVE FINDINGS: Normal appearing uterus, bilateral fallopian tubes and ovaries. Viable female infant in vertex presentation, clear fluid, loose nuchal x1 delivered through and a true knot was noted. PROCEDURE: IV fluids: per anesthesia record Urinary output: 100 cc Position: To recovery room in stable condition Description of procedure: The patient was taken to the operating room and general anesthesia was administered and found to be adequate. She was then placed on the OR table in the supine position with a slight leftward tilt. Patient was prepped and draped in usual sterile fashion. Ancef 2 gms was given IV prior to the procedure for infection prophylaxis. Timeout was taken. A Pfannenstiel skin incision was then made approximately 3 cm above the pubic symphysis and carried down to level the rectus fascia. The rectus fascia was then nicked in the midline with a scalpel and the fascial incision was extended laterally with use of curved Mahoney scissors. The rectus fascia was then grasped with 2 Kocker clamps elevated and the underlying rectus muscle was dissected off both bluntly and sharply. Scar tissue noted as above. Any bleeding controlled with cautery. The rectus muscles were then split in the midline and the peritoneum was entered. The peritoneal incision was then extended by manually stretching the peritoneum. The bladder blade was positioned. The bladder was noted to be out of harm's way. A scalpel was then used in the lower uterine for the hysterotomy, slowly until amniotomy was obtained a moderate amount of fluid was noted. The uterine incision was then manually stretched. The was noted to be in vertex postion but not engaged in the pelvis. The head was delivered with minmal difficulty. The shoulders and the rest of the body followed immediately. The cord was cut clamped and the infant was handed off to the nurse awaiting. Infant was crying prior to hand off. The placenta was manually delivered. Using a lap gauze the uterus was cleared of all clots and debris. The uterus was then exteriorized and a bladder blade was repositioned. The uterine incision was then closed with 0 Chromic suture in a running locked fashion. A second layer of the same suture was used in a running locked imbricated fashion. The uterine incision was inspected and noted to be hemostatic. The posterior aspect of the uterus was then inspected and anatomy was seen as above. The right fallopian tube was identified and traced to the fimbriated end. A filshie clip was placed approximately 2 cm from the uterine cornu. Clip surrounded the tube in its entirety. Blanching noted and hemostasis. The left fallopian tube was identified and traced to the fimbriated end. A filshie clip was placed approximately 2 cm from the uterine cornu. Clip surrounded the tube in its entirety. Blanching noted and hemostasis. The uterus was returned to its normal anatomic position within the abdominal cavity. Warm saline irrigation was used to clear all clots and debris from the abdomen. The uterine incision was inspected once more and noted to remain hemostatic. The bladder blade was removed and the peritoneum was closed with 2-0 chromic in a running fashion. The rectus muscles were then reapproximated and the rectus fascia was closed with a #1 PDS in a running fashion. The subcutaneous tissue was then inspected and any bleeding was controlled with Bovie electrocautery. The subcutaneous tissue was then closed with 2-0 Plain Gut suture in a running fashion. The skin was then closed with 3-0 Monocryl in a running subcuticular fashion. The skin incision was then clean dried and Dermabond was applied over the skin incision. All instrument sponge and needle counts were correct x3 for the procedure the patient tolerated the procedure well. She will proceed to recovery room in stable condition
[2019-08-19] MEDS ORDERED: KETOROLAC TROMETHAMINE INJ/PF 30 MG/1 ML SDV IV ONE ×2 (00:15→06:00)
[2019-08-19] MEDS: OXYCODONE-ACETAMINOPHEN 5-325 MG TABLET PO PRN ×3 (02:18→19:04)
--- NOTE | 2019-08-19 02:29 | Delivery Summary ---
Del Sum A-C Datetime Report Generated by CPN: 08/19/2019 02:28 DELIVERY PERSONNEL DELIVERY PERSONNEL: [id number] Delivery Doctor:: Debbie Lipscomb MD Anesthesiologist:: mylene WOOD SCALER:: Radha Lam, WOOD SCALER Cardiology Technologist:: Patricia Sifuentes, RN Care Consultant/WASTE WATER TREATMENT PLANT OPERATOR: Radha Green, ST Care Consultant/WASTE WATER TREATMENT PLANT OPERATOR: Ivis Banuelos, ST MATERNAL INFORMATION Delivery Anesthesia: General Medications After Delivery: Pitocin Drip 20 Units/1000ml NSS Meds After Delivery Comment: 2nd bag of pitocin 20 units/1000 mL ns Delivery QBL: 660 Maternal Complications: None LABOR SUMMARY EDC: 08/26/2019 00:00 No. Babies in Womb: 1 Attempted: No LABOR INFORMATION Reason for Induction: Not Applicable Oxytocin: N/A Group B Beta Strep: neg Antibiotics # of Doses: 1 Antibiotics Time of Last Dose: 2114 Name of Antibiotic Given: Ancef 2 g MEMBRANES Membranes Rupture Method: Spontaneous Rupture of Membranes: 08/18/2019 15:00 Length of Rupture (hr): 7.00 Amniotic Fluid Color: Clear STAGES OF LABOR Stage 3 hr: 0 Stage 3 min: 1 CSECTION DELIVERY Primary Indication: Repeat Elective CSection Urgency: Non-Scheduled CSection Incidence: Repeat Labor: Labor Elective: Elective CSection Incision: Lower Uterine Transverse BABY A INFORMATION Infant Delivery Date/Time: 08/18/2019 22:00 Method of Delivery: Nurse Controlled Delivery: No Born in Route : No : N/A Forceps: N/A Vacuum Extraction: N/A Shoulder Dystocia : No PRESENTATION/POSITION BABY A Presentation: Cephalic Cephalic Presentation: Vertex Breech Presentation: N/A PLACENTA INFORMATION BABY A Placenta Delivery Time : 08/18/2019 22:01 Placenta Method of Delivery: Manual Removal Placenta Status: Delivered SCORES BABY A Heart Rate 1 min: >100 bpm Resp Effort 1 min: Good Cry Reflex Irritability 1 min: Cough or Sneeze or Pulls Away Muscle Tone 1 min: Active Motion Color 1 min: Body [place], Extremities Blue SCORE 1 MIN: 9 Heart Rate 5 min: >100 bpm Resp Effort 5 min: Good Cry Reflex Irritability 5 min: Cough or Sneeze or Pulls Away Muscle Tone 5 min: Active Motion Color 5 min: Body [place], Extremities Blue SCORE 5 MIN: 9 INFANT INFORMATION BABY A Gestational Age at Delivery: 38.6 Gestational Status: Early Term- 37- 38.6 Weeks Outcome : Liveborn Infant Condition : Stable Sex: Female WEIGHT/LENGTH BABY A Birthweight (gm): 3330 Infant Weight (lb): 7 Weight (oz): 5 Infant Length (in): 20.00 Length (cm): 50.80 CORD INFORMATION BABY A No. Cord Vessels: 3 Nuchal Cord : N/A True Knot: 1 Cord Blood Taken: Yes-For Storage (Mom's Blood type +) ASSESSMENT BABY A Skin to Skin: No
[2019-08-19 08:15] LABS: HEMATOCRIT 30.3 % (36.0-47.0); MEAN CORPUSCULAR HEMOGLOBIN 27.6 pg (27.0-33.4); MEAN CORPUSCULAR HGB CONC 33.5 g/dL (32.0-36.0); MEAN CORPUSCULAR VOLUME 82 fl (80-97); PLATELET COUNT 241 10^3/uL (150-450); RED BLOOD COUNT 3.69 10^6/uL (3.72-5.28); RED CELL DISTRIBUTION WIDTH 14.1 % (11.5-14.0); WHITE BLOOD COUNT 23.5 10^3/uL (4.0-10.5)
[2019-08-19 08:46] LABS: HEMOGLOBIN 10.2 g/dL (12.0-15.5)
[2019-08-19] MEDS: DOCUSATE SODIUM 100 MG CAPSULE PO SCH ×2 (11:01→17:25)
[2019-08-19] MEDS: PRENATAL VITAMIN W DHA CAPSULE PO SCH (11:01)
[2019-08-19] MEDS: IBUPROFEN 800 MG TABLET PO SCH ×2 (13:27→22:30)
--- NOTE | 2019-08-19 13:43 | PDOC PROGRESS REPORT ---
Subjective-OB Progress Note for:: 08/19/19 - POD #1, doing well, UOB, voided but had some increased vaginal bleeding when she got out of bed. Pt feeling fine, denies further increased bleeding, AB+, Hx +THC this admission Physical Exam (OB) Vital Signs: Temp Pulse Resp BP Pulse Ox 97.7 F 95 16 131/78 H 98 08/19/19 08:00 08/19/19 08:00 08/19/19 08:00 08/19/19 08:00 08/19/19 08:00 Intake & Output 08/18/19 08/19/19 08/20/19 06:59 06:59 06:59 Intake Total 1600 600 Output Total 700 700 Balance 900 -100 - General General Appearance: Appears well, Alert - PIH/Pre-Eclampsia Clonus: Negative Headache: Absent Epigastric Pain: No Visual Changes: No - Dressing Removed: - N/A Incision: Well Approximated Closure Type: Surgical Glue - Lochia Lochia Amount: Small 10-25 ml Lochia Color: Rubra/Red - Abdomen Description: Tender, Soft Hernia Present: No Fundal Description: Firm, Midline Fundal Height: u/u - u/2 - Respiratory Respiratory Status: No respiratory distress - Cardiovascular Rhythm: Regular - Abdominal Distension: No distension Tenderness: Nontender Abdominal Notes: +bowel sounds - Genitourinary Genitourinary Note: voiding - Extremities Upper extremity: Normal inspection Lower extremities: Edema - Neurological Cognition: Normal Orientation: AAOx4 - Skin Skin Temperature: Warm Skin Moisture: Dry Objective-Diagnostic Laboratory: 08/19/19 07:30 08/18/19 08/18/19 08/18/19 19:20 19:31 23:08 WBC 17.4 H RBC 4.88 Hgb 13.3 Hct 40.2 MCV 82 MCH 27.2 MCHC 33.0 RDW 14.6 H Plt Count 300 Seg Neutrophils % 71.4 Urine Color YELLOW Urine Appearance CLOUDY Urine pH 6.0 Ur Specific [place] 1.017 Urine Protein 30 H Urine Glucose (UA) NEGATIVE Urine Ketones NEGATIVE Urine Blood MODERATE H Urine Nitrite NEGATIVE Ur Leukocyte Esterase NEGATIVE Blood Type AB POSITIVE Antibody Screen NEGATIVE 08/19/19 07:30 WBC 23.5 H RBC 3.69 L Hgb 10.2 L D Hct 30.3 L MCV 82 MCH 27.6 MCHC 33.5 RDW 14.1 H Plt Count 241 Seg Neutrophils % Urine Color Urine Appearance Urine pH Ur Specific [place] Urine Protein Urine Glucose (UA) Urine Ketones Urine Blood Urine Nitrite Ur Leukocyte Esterase Blood Type Antibody Screen Assessment and Plan(PN) - Assessment and Plan (1) Active labor at term Is this a current diagnosis for this admission?: Yes (2) H/O section Is this a current diagnosis for this admission?: Yes (3) S/P repeat low transverse Is this a current diagnosis for this admission?: Yes (4) Sterilization Is this a current diagnosis for this admission?: Yes Plan:: Ambulation encouraged, Routine Post Op orders - Time Spent with Patient Time with patient: Less than 15 minutes Medications reviewed and adjusted accordingly: Yes - Disposition Anticipated Discharge: Home Within: within 48 hours
[2019-08-20] MEDS: IBUPROFEN 800 MG TABLET PO SCH ×2 (05:02→13:29)
[2019-08-20] MEDS: OXYCODONE-ACETAMINOPHEN 5-325 MG TABLET PO PRN (08:51)
[2019-08-20] MEDS: PRENATAL VITAMIN W DHA CAPSULE PO SCH (09:20)
[2019-08-20] MEDS: DOCUSATE SODIUM 100 MG CAPSULE PO SCH (09:21)
--- NOTE | 2019-08-20 11:51 | PDOC PROGRESS REPORT ---
Subjective-OB Progress Note for:: 08/20/19 Subjective: Doing well, family at BS, trying to pump, bottle feeding, relief from incisional pain, eating and driking well, Physical Exam (OB) Vital Signs: Temp Pulse Resp BP Pulse Ox 98.2 F 92 18 125/66 99 08/20/19 11:01 08/20/19 11:01 08/20/19 11:01 08/20/19 11:01 08/20/19 11:01 Intake & Output 08/19/19 08/20/19 08/21/19 06:59 06:59 06:59 Intake Total 1600 2200 Output Total 700 3100 Balance 900 -900 - PIH/Pre-Eclampsia DTR's: 1 + Clonus: Negative Headache: Absent Epigastric Pain: No Visual Changes: No - Dressing Removed: - N/A Incision: Well Approximated Closure Type: Surgical Glue - Lochia Lochia Amount: Scant < 10 ml Lochia Color: Rubra/Red - Abdomen Description: Tender, Soft Hernia Present: No Fundal Description: Firm, Midline Fundal Height: u/u - u/2 Objective-Diagnostic Laboratory: 08/19/19 07:30 Assessment and Plan(PN) - Assessment and Plan (1) Active labor at term Is this a current diagnosis for this admission?: Yes (2) H/O section Is this a current diagnosis for this admission?: Yes (4) S/P repeat low transverse Is this a current diagnosis for this admission?: Yes (5) Sterilization Is this a current diagnosis for this admission?: Yes - Time Spent with Patient Time with patient: Less than 15 minutes Medications reviewed and adjusted accordingly: Yes - Disposition Anticipated Discharge: Home Within: within 24 hours
--- NOTE | 2019-08-20 11:57 | PDOC DISCHARGE SUMMARY ---
Impression - Admit/DC Date/PCP Admission Date/Primary Care Provider: 08/18/19 19:02 YVON PALAFOX MD Discharge Date: 08/20/19 - Discharge Diagnosis (1) Active labor at term Is this a current diagnosis for this admission?: Yes (2) H/O section Is this a current diagnosis for this admission?: Yes (4) S/P repeat low transverse Is this a current diagnosis for this admission?: Yes (5) Sterilization Is this a current diagnosis for this admission?: Yes - Additional Information Discharge Diet: As Tolerated, Regular Discharge Activity: Activity As Tolerated, No Lifting Over 10 Pounds, No Lifting/Push/Pulling, Pelvic Rest Referrals: YVON PALAFOX MD [Primary Care Provider] - (rtc 1 week) Prescriptions: Oxycodone HCl/Acetaminophen [Percocet 5-325 mg Tablet] 1 tab PO Q4HP PRN #20 tablet PRN Reason: Ibuprofen [Motrin 800 mg Tablet] 800 mg PO Q8 #30 tablet Home Medications: Prenat 115/Iron Fum/Folic/Dss [ 19 Tablet] 1 tab PO DAILY 05/02/19 Lurasidone HCl [Latuda 40 mg Tablet] 40 mg PO DAILY 08/13/19 Ibuprofen [Motrin 800 mg Tablet] 800 mg PO Q8 #30 tablet 08/20/19 Oxycodone HCl/Acetaminophen [Percocet 5-325 mg Tablet] 1 tab PO Q4HP PRN #20 tablet 08/20/19 HPI Gestational Age: 39 Reason(s) for Admission: Onset of Labor, Ceasarean Section-Repeat Procedures: Ultrasound Intrapartum Procedure(s): : Low Cervical, Transverse Hospital Course Hospital Course: routine post op Results Laboratory Results: WBC 23.5 10^3/uL (4.0-10.5) H 08/19/19 07:30 RBC 3.69 10^6/uL (3.72-5.28) L 08/19/19 07:30 Hgb 10.2 g/dL (12.0-15.5) L D 08/19/19 07:30 Hct 30.3 % (36.0-47.0) L 08/19/19 07:30 MCV 82 fl (80-97) 08/19/19 07:30 MCH 27.6 pg (27.0-33.4) 08/19/19 07:30 MCHC 33.5 g/dL (32.0-36.0) 08/19/19 07:30 RDW 14.1 % (11.5-14.0) H 08/19/19 07:30 Plt Count 241 10^3/uL (150-450) 08/19/19 07:30 Lymph % (Auto) 19.3 % (13-45) 08/18/19 19:31 [place] % (Auto) 8.5 % (3-13) 08/18/19 19:31 Eos % (Auto) 0.4 % (0-6) 08/18/19 19:31 Baso % (Auto) 0.4 % (0-2) 08/18/19 19: Absolute Neuts (auto) 12.4 10^3/uL (1.7-8.2) H 08/18/19 19:31 Absolute Lymphs (auto) 3.4 10^3/uL (0.5-4.7) 08/18/19 19:31 Absolute Monos (auto) 1.5 10^3/uL (0.1-1.4) H 08/18/19 19:31 Absolute Eos (auto) 0.1 10^3/uL (0.0-0.6) 08/18/19 19:31 Absolute Basos (auto) 0.1 10^3/uL (0.0-0.2) 08/18/19 19:31 Seg Neutrophils % 71.4 % (42-78) 08/18/19 19:31 Urine Color YELLOW 08/18/19 19:20 Urine Appearance CLOUDY 08/18/19 19:20 Urine pH 6.0 (5.0-9.0) 08/18/19 19:20 Ur Specific [place] 1.017 08/18/19 19:20 Urine Protein 30 mg/dL (NEGATIVE) H 08/18/19 19:20 Urine Glucose (UA) NEGATIVE mg/dL (NEGATIVE) 08/18/19 19:20 Urine Ketones NEGATIVE mg/dL (NEGATIVE) 08/18/19 19:20 Urine Blood MODERATE (NEGATIVE) H 08/18/19 19:20 Urine Nitrite NEGATIVE (NEGATIVE) 08/18/19: Urine Bilirubin NEGATIVE (NEGATIVE) 08/18/19 19:20 Urine Urobilinogen NEGATIVE mg/dL (<2.0) 08/18/19 19:20 Ur Leukocyte Esterase NEGATIVE (NEGATIVE) 08/18/19 19:20 Urine Ascorbic Acid NEGATIVE (NEGATIVE) 08/18/19 19:20 Urine Opiates Screen NEGATIVE 08/18/19 19:20 Urine Methadone Screen NEGATIVE 08/18/19 19:20 Ur Barbiturates Screen NEGATIVE 08/18/19 19:20 Ur Phencyclidine Scrn NEGATIVE 08/18/19 19:20 Ur Amphetamines Screen NEGATIVE 08/18/19 19:20 U Benzodiazepines Scrn NEGATIVE 08/18/19 19:20 Urine Cocaine Screen NEGATIVE 08/18/19 19:20 U Marijuana (THC) Screen UNCONFIRMED POSITIVE 08/18/19 19:20 RPR NONREACTIVE (NONREACTIVE) 08/18/19 19:31 Blood Type AB POSITIVE 08/18/19 23:08 Antibody Screen NEGATIVE 08/18/19 23:08 Plan Health Concerns: pain Plan of Treatment: discharge home, no THC Goals: no complications Time Spent: Less than 30 Minutes
[2019-08-20 12:12] VITALS: BP 132/76
== END 2019-08-20 14:18 | disposition home or self-care (01) | DRG 785 ==
LOC: LC 18:48 → LR 19:02 → 2S 08-19 00:49
PROVIDERS: ADMIT Obstetrics & Gynecology; ATTEND Obstetrics & Gynecology
PROC: 10D00Z1 Extraction of Products of Conception, Low, Open Approach (ICD-10-PCS; principal; 2019-08-18)
PROC: 0UL70CZ Occlusion of Bilateral Fallopian Tubes with Extraluminal Device, Open Approach (ICD-10-PCS; 2019-08-18)
PROC: 3E0234Z Introduction of Serum, Toxoid and Vaccine into Muscle, Percutaneous Approach (ICD-10-PCS; 2019-08-20)
DX: O14.04 Mild to moderate pre-eclampsia, complicating childbirth (principal); Z30.2 Encounter for sterilization; O34.211 Maternal care for low transverse scar from previous cesarean delivery; O69.1XX0 Labor and delivery complicated by cord around neck, with compression, not applicable or unspecified; Z23 Encounter for immunization; Z3A.38 38 weeks gestation of pregnancy; Z37.0 Single live birth
CPT/HCPCS: 1961; 36415; 80307; 81005; 85025; 85027; 86592; 86850; 86900; 86901; 90715; 94799; J0131; J0330; J0690; J1885; J2210; J2250; J2270; J2370; J2405; J2590; J2704; J3010; J3490; J7120